=== PATIENT | male | born 1960 | race Caucasian/White ===

== ENCOUNTER 2022-05-30 21:36 | Inpatient (IN) | payer MEDICAID ==
[~2022-05-30] VITALS: Ht 165.1 cm; Wt 69.9 kg
[2022-05-30] MEDS ORDERED: CEFTRIAXONE 1 G PREMIX 50 ML IV ONE (23:00)
[2022-05-30] MEDS ORDERED: SODIUM CHLORIDE 0.9% 1000ML BAG (SEPSIS BOLUS) IV ONE (23:00)
[2022-05-30 23:33] LABS: BASOPHILS % 0.2 % (0.0-2.0); EOSINOPHILS % 0.1 % (0.0-5.0); HEMATOCRIT. 31.9 % (42.0-52.0); HEMOGLOBIN. 10.5 g/dL (14.0-18.0); LYMPHOCYTES % 9.4 % (20.0-50.0); MEAN CORPUSCULAR HEMOGLOBIN 29.6 pg (28.0-32.0); MEAN CORPUSCULAR VOLUME 89.8 fL (80.0-94.0); MEAN PLATELET VOLUME 8.3 fl (7.4-10.4); MONOCYTES % 5.5 % (2.0-8.0); NEUTROPHILS % 84.8 % (40.0-76.0); PLATELET 321 x1000/uL (130-400); RED BLOOD CELL COUNT 3.55 mill/uL (4.7-6.1); RED CELL DISTRIBUTION WIDTH 16.2 % (11.6-14.6)
[2022-05-30 23:44] LABS: INR 1.2; PROTHROMBIN TIME 12.9 sec (9.6-11.0)
[2022-05-30 23:46] LABS: CHLORIDE 112 mEq/L (98-107)
[2022-05-30 23:58] LABS: CREATINE KINASE 664 IU/L (39-308); ETHANOL BLOOD < 10 mg/dL
[2022-05-31] MEDS ORDERED: HALOPERIDOL LACTATE 5MG/ML VIAL IM ONE (00:45)
[2022-05-31] MEDS ORDERED: SODIUM CHLORIDE 0.9% 1,000 ML IV ONE (00:45)
[2022-05-31 05:39] VITALS: BP 90/56
[2022-05-31 05:43] VITALS: BP 90/56
[2022-05-31 08:00] VITALS: BP 114/62
[2022-05-31] MEDS ORDERED: ONDANSETRON HCL 4MG/2ML INJ IV PRN (09:15)
[2022-05-31] MEDS ORDERED: CLONIDINE 0.1MG TABLET PO PRN (09:15)
[2022-05-31] MEDS ORDERED: IPRATROPIUM/ALBUTEROL 0.5-3(2.5)MG/3ML NEB HHN PRN (09:15)
[2022-05-31] MEDS ORDERED: DIPHENHYDRAMINE 50MG/ML VIAL IV PRN (09:15)
[2022-05-31] MEDS ORDERED: DEXTROSE 50% WATER 50ML SYRINGE IV PRN (10:45)
[2022-05-31] MEDS: SODIUM CHLORIDE 0.9% 1,000 ML IV SCH (11:19)
[2022-05-31] MEDS ORDERED: LORAZEPAM 2MG/ML CPJ IM PRN (11:45)
[2022-05-31 12:00] VITALS: BP 124/81
[2022-05-31] MEDS ORDERED: NALOXONE HCL 0.4MG/ML VIAL IV PRN (12:00)
[2022-05-31] MEDS: MORPHINE SULFATE 2 MG/ML CPJ (NOT FOR IM USE) IV PRN ×2 (12:09→20:12)
[2022-05-31] MEDS: BLOOD SUGAR DIAGNOSTIC STRIP TEST SCH ×3 (12:17→20:12)
[2022-05-31] MEDS: INSULIN LISPRO 100 UNITS/ML SUBCUT SCH ×3 (12:18→20:12)
[2022-05-31 16:00] VITALS: BP 122/76
[2022-05-31 20:00] VITALS: BP 117/82
[2022-06-01] VITALS: BP 138/82
[2022-06-01] MEDS: SODIUM CHLORIDE 0.9% 1,000 ML IV SCH ×2 (01:33→21:46)
[2022-06-01] MEDS: HALOPERIDOL LACTATE 5MG/ML VIAL IM PRN (01:35)
[2022-06-01] MEDS: MORPHINE SULFATE 2 MG/ML CPJ (NOT FOR IM USE) IV PRN ×2 (02:17→10:08)
[2022-06-01 04:00] VITALS: BP 99/66
[2022-06-01 05:53] LABS: BASOPHILS % 0.2 % (0.0-2.0); EOSINOPHILS % 0.5 % (0.0-5.0); HEMATOCRIT. 26.1 % (42.0-52.0); HEMOGLOBIN. 8.7 g/dL (14.0-18.0); LYMPHOCYTES % 8.1 % (20.0-50.0); MEAN CORPUSCULAR VOLUME 90.3 fL (80.0-94.0); MEAN PLATELET VOLUME 8.6 fl (7.4-10.4); MONOCYTES % 5.5 % (2.0-8.0); NEUTROPHILS % 85.7 % (40.0-76.0); PLATELET 233 x1000/uL (130-400); RED BLOOD CELL COUNT 2.89 mill/uL (4.7-6.1); RED CELL DISTRIBUTION WIDTH 15.9 % (11.6-14.6)
[2022-06-01] MEDS: BLOOD SUGAR DIAGNOSTIC STRIP TEST SCH ×4 (06:41→21:40)
[2022-06-01] MEDS: INSULIN LISPRO 100 UNITS/ML SUBCUT SCH ×4 (08:01→21:00)
[2022-06-01 09:10] LABS: CHLORIDE 112 mEq/L (98-107)
[2022-06-01 12:00] VITALS: BP 100/57
[2022-06-01] MEDS: FLUOXETINE HCL 10 MG CAPSULE PO SCH (12:15)
[2022-06-01 12:52] LABS: CREATINE KINASE 209 IU/L (39-308)
[2022-06-01 16:00] VITALS: BP 110/58
[2022-06-01 20:00] VITALS: BP 110/59
[2022-06-01] MEDS: RISPERIDONE 1MG TABLET PO SCH (21:40)
[2022-06-01] MEDS ORDERED: CEFTRIAXONE 2 G PREMIX 50 ML IV SCH (23:30)
[2022-06-01] MEDS ORDERED: CEFTRIAXONE 2 G in DEXTROSE 5% WATER 50 ML IV SCH (23:45)
[2022-06-02] VITALS: BP 103/55
[2022-06-02 04:00] VITALS: BP 124/69
[2022-06-02] MEDS: MORPHINE SULFATE 2 MG/ML CPJ (NOT FOR IM USE) IV PRN (04:42)
[2022-06-02] MEDS: BLOOD SUGAR DIAGNOSTIC STRIP TEST SCH ×4 (06:03→21:00)
[2022-06-02 06:23] LABS: BASOPHILS % 0.2 % (0.0-2.0); HEMATOCRIT. 28.8 % (42.0-52.0); HEMOGLOBIN. 9.4 g/dL (14.0-18.0); LYMPHOCYTES % 7.6 % (20.0-50.0); MEAN CORPUSCULAR HEMOGLOBIN 29.9 pg (28.0-32.0); MEAN CORPUSCULAR VOLUME 91.6 fL (80.0-94.0); MEAN PLATELET VOLUME 8.3 fl (7.4-10.4); MONOCYTES % 6.2 % (2.0-8.0); PLATELET 217 x1000/uL (130-400); RED BLOOD CELL COUNT 3.14 mill/uL (4.7-6.1); RED CELL DISTRIBUTION WIDTH 16.3 % (11.6-14.6)
[2022-06-02 07:21] LABS: CHLORIDE 111 mEq/L (98-107)
[2022-06-02] MEDS: INSULIN LISPRO 100 UNITS/ML SUBCUT SCH ×4 (07:51→21:00)
[2022-06-02 08:00] VITALS: BP 150/81
[2022-06-02] MEDS: FLUOXETINE HCL 10 MG CAPSULE PO SCH (08:53)
[2022-06-02] MEDS: RISPERIDONE 1MG TABLET PO SCH ×2 (08:53→21:15)
[2022-06-02] MEDS: SODIUM CHLORIDE 0.9% 1,000 ML IV SCH (11:50)
[2022-06-02 12:00] VITALS: BP 126/81
[2022-06-02 16:00] VITALS: BP 113/70
[2022-06-02 20:00] VITALS: BP 141/85
[2022-06-02] MEDS: AMPICILLIN SOD/SULBACTAM NA 3 G in SODIUM CHLORIDE 0.9% 100 ML IV SCH (23:48)
[2022-06-03] VITALS: BP 121/71
[2022-06-03 04:00] VITALS: BP 113/74
[2022-06-03] MEDS: SODIUM CHLORIDE 0.9% 1,000 ML IV SCH ×2 (04:10→20:50)
[2022-06-03] MEDS: AMPICILLIN SOD/SULBACTAM NA 3 G in SODIUM CHLORIDE 0.9% 100 ML IV SCH ×4 (05:16→22:07)
[2022-06-03] MEDS: BLOOD SUGAR DIAGNOSTIC STRIP TEST SCH ×4 (06:00→20:51)
[2022-06-03] MEDS: INSULIN LISPRO 100 UNITS/ML SUBCUT SCH ×4 (07:25→21:47)
[2022-06-03 08:00] VITALS: BP_SYST 121; BP_SYST 152; BP_DIAS 65; BP_DIAS 80
[2022-06-03] MEDS: RISPERIDONE 1MG TABLET PO SCH ×2 (08:37→21:47)
[2022-06-03] MEDS: FLUOXETINE HCL 10 MG CAPSULE PO SCH (08:37)
[2022-06-03 12:00] VITALS: BP 138/79
[2022-06-03] MEDS: HALOPERIDOL LACTATE 5MG/ML VIAL IM PRN (13:24)
[2022-06-03 16:00] VITALS: BP 125/75
[2022-06-03 20:26] VITALS: BP 109/69
[2022-06-03] MEDS: SULFAMETHOXAZOLE/TRIMETHOPRIM 800/160MG TABLET PO SCH (21:47)
[2022-06-03] MEDS: MORPHINE SULFATE 2 MG/ML CPJ (NOT FOR IM USE) IV PRN (22:57)
[2022-06-04] VITALS (7 sets, daily range): BP systolic 87–119; BP diastolic 23–80
[2022-06-04] MEDS: AMPICILLIN SOD/SULBACTAM NA 3 G in SODIUM CHLORIDE 0.9% 100 ML IV SCH ×4 (04:53→22:29)
[2022-06-04] MEDS: BLOOD SUGAR DIAGNOSTIC STRIP TEST SCH ×4 (06:48→21:06)
[2022-06-04] MEDS: INSULIN LISPRO 100 UNITS/ML SUBCUT SCH ×4 (07:51→21:00)
[2022-06-04] MEDS: RISPERIDONE 1MG TABLET PO SCH ×2 (10:18→21:16)
[2022-06-04] MEDS: FLUOXETINE HCL 10 MG CAPSULE PO SCH (10:18)
[2022-06-04] MEDS: SULFAMETHOXAZOLE/TRIMETHOPRIM 800/160MG TABLET PO SCH ×2 (10:19→21:16)
[2022-06-04] MEDS: SODIUM CHLORIDE 0.9% 1,000 ML IV SCH (15:06)
[2022-06-05] VITALS: BP 98/45
[2022-06-05] MEDS: MORPHINE SULFATE 2 MG/ML CPJ (NOT FOR IM USE) IV PRN (01:10)
[2022-06-05] MEDS: AMPICILLIN SOD/SULBACTAM NA 3 G in SODIUM CHLORIDE 0.9% 100 ML IV SCH ×4 (04:13→22:46)
[2022-06-05 04:14] VITALS: BP 107/65
[2022-06-05] MEDS: SODIUM CHLORIDE 0.9% 1,000 ML IV SCH ×2 (05:13→22:47)
[2022-06-05] MEDS: BLOOD SUGAR DIAGNOSTIC STRIP TEST SCH ×4 (06:44→21:59)
[2022-06-05] MEDS: INSULIN LISPRO 100 UNITS/ML SUBCUT SCH ×4 (08:07→22:48)
[2022-06-05] MEDS: FLUOXETINE HCL 10 MG CAPSULE PO SCH (09:36)
[2022-06-05] MEDS: RISPERIDONE 1MG TABLET PO SCH ×2 (09:36→22:45)
[2022-06-05] MEDS: SULFAMETHOXAZOLE/TRIMETHOPRIM 800/160MG TABLET PO SCH ×2 (09:38→22:45)
[2022-06-05 12:00] VITALS: BP 120/68
[2022-06-05 16:00] VITALS: BP 123/59
[2022-06-06] VITALS: BP 119/75
[2022-06-06 04:00] VITALS: BP 122/83
[2022-06-06] MEDS: AMPICILLIN SOD/SULBACTAM NA 3 G in SODIUM CHLORIDE 0.9% 100 ML IV SCH ×4 (05:20→22:32)
[2022-06-06 08:00] VITALS: BP 103/67
[2022-06-06] MEDS: INSULIN LISPRO 100 UNITS/ML SUBCUT SCH ×4 (08:10→21:00)
[2022-06-06] MEDS: BLOOD SUGAR DIAGNOSTIC STRIP TEST SCH ×4 (08:26→21:11)
[2022-06-06] MEDS: SULFAMETHOXAZOLE/TRIMETHOPRIM 800/160MG TABLET PO SCH ×2 (09:58→21:29)
[2022-06-06] MEDS: RISPERIDONE 1MG TABLET PO SCH ×2 (09:58→21:29)
[2022-06-06] MEDS: FLUOXETINE HCL 10 MG CAPSULE PO SCH (09:58)
[2022-06-06 12:00] VITALS: BP 120/86
[2022-06-06] MEDS: SODIUM CHLORIDE 0.9% 1,000 ML IV SCH (15:30)
[2022-06-06 16:00] VITALS: BP 120/74
[2022-06-06 20:00] VITALS: BP 126/76
[2022-06-07] VITALS: BP 140/82
[2022-06-07 04:00] VITALS: BP 107/79
[2022-06-07] MEDS: BLOOD SUGAR DIAGNOSTIC STRIP TEST SCH ×4 (06:17→21:34)
[2022-06-07] MEDS: AMPICILLIN SOD/SULBACTAM NA 3 G in SODIUM CHLORIDE 0.9% 100 ML IV SCH ×4 (06:17→21:56)
[2022-06-07 08:00] VITALS: BP 136/78
[2022-06-07] MEDS: INSULIN LISPRO 100 UNITS/ML SUBCUT SCH ×4 (08:10→21:00)
[2022-06-07] MEDS: FLUOXETINE HCL 10 MG CAPSULE PO SCH (10:09)
[2022-06-07] MEDS: ACETAMINOPHEN 325MG TABLET PO PRN ×2 (10:09→21:55)
[2022-06-07] MEDS: SULFAMETHOXAZOLE/TRIMETHOPRIM 800/160MG TABLET PO SCH ×2 (10:10→21:55)
[2022-06-07] MEDS: RISPERIDONE 1MG TABLET PO SCH ×2 (10:10→21:56)
[2022-06-07] MEDS: SODIUM CHLORIDE 0.9% 1,000 ML IV SCH (10:12)
[2022-06-07 12:00] VITALS: BP 100/63
[2022-06-07 16:00] VITALS: BP 118/70
[2022-06-07 18:03] LABS: BASOPHILS % 0.6 % (0.0-2.0); EOSINOPHILS % 1.7 % (0.0-5.0); LYMPHOCYTES % 11.7 % (20.0-50.0); MEAN CORPUSCULAR HEMOGLOBIN 29.8 pg (28.0-32.0); MEAN CORPUSCULAR VOLUME 88.6 fL (80.0-94.0); MEAN PLATELET VOLUME 8.2 fl (7.4-10.4); MONOCYTES % 6.6 % (2.0-8.0); NEUTROPHILS % 79.4 % (40.0-76.0); PLATELET 249 x1000/uL (130-400); RED BLOOD CELL COUNT 2.34 mill/uL (4.7-6.1); RED CELL DISTRIBUTION WIDTH 16.5 % (11.6-14.6)
[2022-06-07 18:11] LABS: HEMATOCRIT. 20.8 % (42.0-52.0)
[2022-06-07 18:33] LABS: CHLORIDE 113 mEq/L (98-107)
[2022-06-07 20:00] VITALS: BP 135/92
[2022-06-08] VITALS: BP 129/78
[2022-06-08 04:00] VITALS: BP 122/71
[2022-06-08] MEDS: BLOOD SUGAR DIAGNOSTIC STRIP TEST SCH ×4 (05:49→20:25)
[2022-06-08] MEDS: AMPICILLIN SOD/SULBACTAM NA 3 G in SODIUM CHLORIDE 0.9% 100 ML IV SCH ×4 (06:31→22:16)
[2022-06-08] MEDS: ACETAMINOPHEN 325MG TABLET PO PRN ×2 (06:32→08:53)
[2022-06-08 07:11] LABS: BASOPHILS % 0.4 % (0.0-2.0); EOSINOPHILS % 1.2 % (0.0-5.0); HEMATOCRIT. 24.3 % (42.0-52.0); HEMOGLOBIN. 8.2 g/dL (14.0-18.0); MEAN CORPUSCULAR HEMOGLOBIN 29.9 pg (28.0-32.0); MEAN CORPUSCULAR VOLUME 88.5 fL (80.0-94.0); MONOCYTES % 5.2 % (2.0-8.0); NEUTROPHILS % 79.2 % (40.0-76.0); PLATELET 294 x1000/uL (130-400); RED BLOOD CELL COUNT 2.75 mill/uL (4.7-6.1); RED CELL DISTRIBUTION WIDTH 16.5 % (11.6-14.6)
[2022-06-08 08:00] VITALS: BP 127/88
[2022-06-08 08:03] LABS: CHLORIDE 109 mEq/L (98-107)
[2022-06-08] MEDS: INSULIN LISPRO 100 UNITS/ML SUBCUT SCH ×4 (08:10→20:53)
[2022-06-08] MEDS: RISPERIDONE 1MG TABLET PO SCH ×2 (08:53→20:47)
[2022-06-08] MEDS: FLUOXETINE HCL 10 MG CAPSULE PO SCH (08:53)
[2022-06-08] MEDS: SULFAMETHOXAZOLE/TRIMETHOPRIM 800/160MG TABLET PO SCH ×2 (08:53→20:47)
[2022-06-08 12:00] VITALS: BP 124/82
[2022-06-08 16:00] VITALS: BP 130/78
[2022-06-08 20:00] VITALS: BP 125/78
[2022-06-09] VITALS: BP 132/83
[2022-06-09] MEDS: HALOPERIDOL LACTATE 5MG/ML VIAL IM PRN ×2 (02:52→22:26)
[2022-06-09] MEDS: AMPICILLIN SOD/SULBACTAM NA 3 G in SODIUM CHLORIDE 0.9% 100 ML IV SCH ×4 (03:55→22:12)
[2022-06-09 04:00] VITALS: BP 106/68
[2022-06-09] MEDS: BLOOD SUGAR DIAGNOSTIC STRIP TEST SCH ×4 (06:49→21:23)
[2022-06-09 08:00] VITALS: BP 129/76
[2022-06-09] MEDS: INSULIN LISPRO 100 UNITS/ML SUBCUT SCH ×4 (08:54→21:00)
[2022-06-09] MEDS: RISPERIDONE 1MG TABLET PO SCH ×2 (08:59→21:15)
[2022-06-09] MEDS: FLUOXETINE HCL 20MG CAPSULE PO SCH (09:00)
[2022-06-09] MEDS: SULFAMETHOXAZOLE/TRIMETHOPRIM 800/160MG TABLET PO SCH ×2 (09:00→21:15)
[2022-06-09 12:00] VITALS: BP 126/79
[2022-06-09 16:00] VITALS: BP 120/85
[2022-06-09 20:48] VITALS: BP 101/52
[2022-06-10 00:30] VITALS: BP 112/56
[2022-06-10 04:00] VITALS: BP 123/66
[2022-06-10] MEDS: AMPICILLIN SOD/SULBACTAM NA 3 G in SODIUM CHLORIDE 0.9% 100 ML IV SCH ×4 (05:31→23:21)
[2022-06-10] MEDS: BLOOD SUGAR DIAGNOSTIC STRIP TEST SCH ×4 (06:45→20:35)
[2022-06-10] MEDS: INSULIN LISPRO 100 UNITS/ML SUBCUT SCH ×4 (07:43→21:00)
[2022-06-10] MEDS: SULFAMETHOXAZOLE/TRIMETHOPRIM 800/160MG TABLET PO SCH ×2 (10:36→21:03)
[2022-06-10] MEDS: FLUOXETINE HCL 20MG CAPSULE PO SCH (10:36)
[2022-06-10] MEDS: RISPERIDONE 1MG TABLET PO SCH ×2 (10:38→21:02)
[2022-06-10 12:00] VITALS: BP 119/71
[2022-06-10 16:00] VITALS: BP 119/71
[2022-06-10 20:49] VITALS: BP 101/50
[2022-06-10] MEDS: ACETAMINOPHEN 325MG TABLET PO PRN (21:03)
[2022-06-11 00:39] VITALS: BP 138/68
[2022-06-11] MEDS: BLOOD SUGAR DIAGNOSTIC STRIP TEST SCH ×4 (05:27→21:09)
[2022-06-11 08:00] VITALS: BP 144/82
[2022-06-11] MEDS: INSULIN LISPRO 100 UNITS/ML SUBCUT SCH ×4 (08:10→21:00)
[2022-06-11] MEDS: RISPERIDONE 1MG TABLET PO SCH ×2 (08:41→21:10)
[2022-06-11] MEDS: FLUOXETINE HCL 20MG CAPSULE PO SCH (08:41)
[2022-06-11 12:00] VITALS: BP 111/72
[2022-06-11 16:00] VITALS: BP 118/71
[2022-06-11 20:00] VITALS: BP 109/62
[2022-06-11] MEDS: ACETAMINOPHEN 325MG TABLET PO PRN (21:10)
[2022-06-12] VITALS: BP_SYST 129; BP_SYST 141; BP_DIAS 80; BP_DIAS 81
[2022-06-12 04:00] VITALS: BP 129/80
[2022-06-12] MEDS: INSULIN LISPRO 100 UNITS/ML SUBCUT SCH ×3 (07:38→21:00)
[2022-06-12 08:00] VITALS: BP 125/72
[2022-06-12] MEDS: FLUOXETINE HCL 20MG CAPSULE PO SCH (08:48)
[2022-06-12] MEDS: RISPERIDONE 1MG TABLET PO SCH ×2 (08:49→21:27)
[2022-06-12 12:00] VITALS: BP 119/80
[2022-06-12] MEDS: BLOOD SUGAR DIAGNOSTIC STRIP TEST SCH ×2 (12:20→21:00)
[2022-06-12 16:00] VITALS: BP 111/65
[2022-06-12 20:00] VITALS: BP 103/79
[2022-06-13] VITALS: BP 131/75
[2022-06-13 04:00] VITALS: BP 126/78
[2022-06-13] MEDS: BLOOD SUGAR DIAGNOSTIC STRIP TEST SCH ×3 (06:35→21:14)
[2022-06-13] MEDS: INSULIN LISPRO 100 UNITS/ML SUBCUT SCH ×3 (07:50→21:00)
[2022-06-13 08:00] VITALS: BP 125/65
[2022-06-13 08:10] LABS: BASOPHILS % 0.5 % (0.0-2.0); EOSINOPHILS % 0.5 % (0.0-5.0); HEMATOCRIT. 23.2 % (42.0-52.0); HEMOGLOBIN. 7.9 g/dL (14.0-18.0); LYMPHOCYTES % 15.4 % (20.0-50.0); MEAN CORPUSCULAR HEMOGLOBIN 30.3 pg (28.0-32.0); MEAN CORPUSCULAR VOLUME 89.5 fL (80.0-94.0); MEAN PLATELET VOLUME 7.7 fl (7.4-10.4); MONOCYTES % 8.5 % (2.0-8.0); NEUTROPHILS % 75.1 % (40.0-76.0); PLATELET 418 x1000/uL (130-400); RED CELL DISTRIBUTION WIDTH 16.7 % (11.6-14.6)
[2022-06-13 08:21] LABS: CHLORIDE 105 mEq/L (98-107)
[2022-06-13] MEDS: RISPERIDONE 1MG TABLET PO SCH ×2 (09:45→20:42)
[2022-06-13] MEDS: FLUOXETINE HCL 20MG CAPSULE PO SCH (09:45)
[2022-06-13 12:00] VITALS: BP 83/35
[2022-06-13 16:00] VITALS: BP 118/65
[2022-06-13 20:00] VITALS: BP 103/65
[2022-06-14] VITALS: BP 99/62
[2022-06-14 04:00] VITALS: BP 122/74
[2022-06-14] MEDS: BLOOD SUGAR DIAGNOSTIC STRIP TEST SCH ×3 (06:23→20:07)
[2022-06-14] MEDS: INSULIN LISPRO 100 UNITS/ML SUBCUT SCH ×3 (07:50→20:16)
[2022-06-14 08:00] VITALS: BP 117/55
[2022-06-14] MEDS: RISPERIDONE 1MG TABLET PO SCH ×2 (10:38→20:08)
[2022-06-14] MEDS: FLUOXETINE HCL 20MG CAPSULE PO SCH (10:38)
[2022-06-14 12:00] VITALS: BP 102/63
[2022-06-14 16:00] VITALS: BP 95/63
[2022-06-14 20:00] VITALS: BP 105/46
[2022-06-15] VITALS: BP 104/60
[2022-06-15 04:00] VITALS: BP 107/62
[2022-06-15] MEDS: INSULIN LISPRO 100 UNITS/ML SUBCUT SCH ×4 (07:50→21:00)
[2022-06-15] MEDS: BLOOD SUGAR DIAGNOSTIC STRIP TEST SCH ×4 (07:54→21:37)
[2022-06-15 08:00] VITALS: BP 117/51
[2022-06-15] MEDS: FLUOXETINE HCL 20MG CAPSULE PO SCH (09:01)
[2022-06-15] MEDS: RISPERIDONE 1MG TABLET PO SCH ×2 (09:02→21:41)
[2022-06-15 12:00] VITALS: BP 110/58
[2022-06-15 16:00] VITALS: BP 102/69
[2022-06-15 20:00] VITALS: BP 120/71
[2022-06-16] VITALS: BP 122/73
[2022-06-16 04:00] VITALS: BP 128/80
[2022-06-16] MEDS: BLOOD SUGAR DIAGNOSTIC STRIP TEST SCH ×4 (06:45→20:43)
[2022-06-16 07:38] LABS: BASOPHILS % 0.8 % (0.0-2.0); EOSINOPHILS % 0.7 % (0.0-5.0); HEMOGLOBIN. 8.8 g/dL (14.0-18.0); MEAN CORPUSCULAR HEMOGLOBIN 30.1 pg (28.0-32.0); MEAN CORPUSCULAR VOLUME 88.7 fL (80.0-94.0); MEAN PLATELET VOLUME 7.1 fl (7.4-10.4); MONOCYTES % 9.5 % (2.0-8.0); PLATELET 508 x1000/uL (130-400); RED BLOOD CELL COUNT 2.93 mill/uL (4.7-6.1); RED CELL DISTRIBUTION WIDTH 16.6 % (11.6-14.6)
[2022-06-16] MEDS: INSULIN LISPRO 100 UNITS/ML SUBCUT SCH ×4 (07:50→20:43)
[2022-06-16 08:00] VITALS: BP 109/70
[2022-06-16] MEDS: FLUOXETINE HCL 20MG CAPSULE PO SCH (10:01)
[2022-06-16] MEDS: RISPERIDONE 1MG TABLET PO SCH ×2 (10:01→20:33)
[2022-06-16 11:56] VITALS: BP 117/64
[2022-06-16 16:00] VITALS: BP 104/67
[2022-06-16] MEDS: HYDROCODONE/ACETAMINOPHEN 5/325MG TABLET PO PRN (17:41)
[2022-06-16] MEDS: ENOXAPARIN 40MG/0.4ML SYR SUBCUT SCH (17:41)
[2022-06-16 20:00] VITALS: BP 126/79
[2022-06-17] MEDS: BLOOD SUGAR DIAGNOSTIC STRIP TEST SCH ×2 (07:20→21:00)
[2022-06-17 07:27] LABS: HEMATOCRIT 23.7 % (42.0-52.0); MEAN CORPUSCULAR HEMOGLOBIN 30.3 pg (28.0-32.0); MEAN CORPUSCULAR VOLUME 89.8 fL (80.0-94.0); PLATELET 470 x1000/uL (130-400); RED BLOOD CELL COUNT 2.64 mill/uL (4.7-6.1); RED CELL DISTRIBUTION WIDTH 16.7 % (11.6-14.6)
[2022-06-17] MEDS: INSULIN LISPRO 100 UNITS/ML SUBCUT SCH ×2 (07:50→21:00)
[2022-06-17 08:00] VITALS: BP 108/99
[2022-06-17] MEDS: RISPERIDONE 1MG TABLET PO SCH ×2 (08:22→20:26)
[2022-06-17] MEDS: FLUOXETINE HCL 20MG CAPSULE PO SCH (08:22)
[2022-06-17] MEDS: HYDROCODONE/ACETAMINOPHEN 5/325MG TABLET PO PRN (08:24)
[2022-06-17 12:00] VITALS: BP 123/76
[2022-06-17 16:00] VITALS: BP 106/61
[2022-06-17] MEDS ORDERED: NALOXONE HCL 0.4MG/ML VIAL IV PRN (16:30)
[2022-06-17 20:00] VITALS: BP 120/79
[2022-06-18] VITALS: BP 122/78
[2022-06-18 04:00] VITALS: BP 120/76
[2022-06-18] MEDS: BLOOD SUGAR DIAGNOSTIC STRIP TEST SCH ×4 (07:36→21:09)
[2022-06-18] MEDS: INSULIN LISPRO 100 UNITS/ML SUBCUT SCH ×4 (07:36→21:00)
[2022-06-18 08:00] VITALS: BP 131/80
[2022-06-18] MEDS: RISPERIDONE 1MG TABLET PO SCH ×2 (08:29→21:08)
[2022-06-18] MEDS: FLUOXETINE HCL 20MG CAPSULE PO SCH (08:29)
[2022-06-18 12:00] VITALS: BP 114/70
[2022-06-18] MEDS: HYDROCODONE/ACETAMINOPHEN 5/325MG TABLET PO PRN (15:14)
[2022-06-18 16:00] VITALS: BP 111/72
[2022-06-18] MEDS: ENOXAPARIN 40MG/0.4ML SYR SUBCUT SCH ×2 (18:00→19:07)
[2022-06-18 20:00] VITALS: BP 130/90
[2022-06-19] VITALS: BP 130/90
[2022-06-19] MEDS: BLOOD SUGAR DIAGNOSTIC STRIP TEST SCH ×4 (03:46→21:06)
[2022-06-19 04:00] VITALS: BP_SYST 130; BP_SYST 137; BP_DIAS 84; BP_DIAS 90
[2022-06-19] MEDS: INSULIN LISPRO 100 UNITS/ML SUBCUT SCH ×4 (07:50→21:00)
[2022-06-19 08:00] VITALS: BP 119/75
[2022-06-19] MEDS: RISPERIDONE 1MG TABLET PO SCH ×2 (10:37→21:07)
[2022-06-19] MEDS: FLUOXETINE HCL 20MG CAPSULE PO SCH (10:37)
[2022-06-19 12:00] VITALS: BP 100/56
[2022-06-19 16:00] VITALS: BP 92/54
[2022-06-19] MEDS: ENOXAPARIN 40MG/0.4ML SYR SUBCUT SCH (18:00)
[2022-06-19 20:00] VITALS: BP 120/66
[2022-06-19] MEDS: HYDROCODONE/ACETAMINOPHEN 5/325MG TABLET PO PRN (20:00)
[2022-06-20] MEDS: HYDROCODONE/ACETAMINOPHEN 5/325MG TABLET PO PRN ×2 (02:00→14:28)
[2022-06-20] MEDS: BLOOD SUGAR DIAGNOSTIC STRIP TEST SCH ×4 (03:54→21:00)
[2022-06-20] MEDS: INSULIN LISPRO 100 UNITS/ML SUBCUT SCH ×4 (07:50→21:00)
[2022-06-20 08:00] VITALS: BP 103/52
[2022-06-20] MEDS: RISPERIDONE 1MG TABLET PO SCH ×2 (08:56→21:00)
[2022-06-20] MEDS: ACETAMINOPHEN 325MG TABLET PO PRN (08:56)
[2022-06-20] MEDS: FLUOXETINE HCL 20MG CAPSULE PO SCH (08:57)
[2022-06-20 12:00] VITALS: BP 96/57
[2022-06-20 16:00] VITALS: BP 118/66
[2022-06-20] MEDS: ENOXAPARIN 40MG/0.4ML SYR SUBCUT SCH (19:05)
[2022-06-20 20:00] VITALS: BP 129/74
[2022-06-21] VITALS: BP 131/83
[2022-06-21 04:00] VITALS: BP 133/87
[2022-06-21] MEDS: BLOOD SUGAR DIAGNOSTIC STRIP TEST SCH ×4 (07:20→20:41)
[2022-06-21 07:22] LABS: BASOPHILS % 0.9 % (0.0-2.0); HEMATOCRIT. 27.5 % (42.0-52.0); LYMPHOCYTES % 17.9 % (20.0-50.0); MEAN CORPUSCULAR HEMOGLOBIN 29.2 pg (28.0-32.0); MEAN CORPUSCULAR VOLUME 89.6 fL (80.0-94.0); MEAN PLATELET VOLUME 7.7 fl (7.4-10.4); MONOCYTES % 10.6 % (2.0-8.0); NEUTROPHILS % 69.6 % (40.0-76.0); PLATELET 367 x1000/uL (130-400); RED BLOOD CELL COUNT 3.07 mill/uL (4.7-6.1); RED CELL DISTRIBUTION WIDTH 17.2 % (11.6-14.6)
[2022-06-21] MEDS: INSULIN LISPRO 100 UNITS/ML SUBCUT SCH ×4 (07:50→20:42)
[2022-06-21 07:53] LABS: CHLORIDE 103 mEq/L (98-107)
[2022-06-21 08:00] VITALS: BP 122/53
[2022-06-21] MEDS: RISPERIDONE 1MG TABLET PO SCH ×2 (09:28→20:42)
[2022-06-21] MEDS: FLUOXETINE HCL 20MG CAPSULE PO SCH (09:28)
[2022-06-21] MEDS: HYDROCODONE/ACETAMINOPHEN 5/325MG TABLET PO PRN (09:29)
[2022-06-21 12:00] VITALS: BP 98/59
[2022-06-21] MEDS ORDERED: POLYETHYLENE GLYCOL 3350 (17GM) 1 DOSE PACK PO PRN (12:15)
[2022-06-21 16:00] VITALS: BP 114/62
[2022-06-21 20:00] VITALS: BP 120/72
[2022-06-21] MEDS: ENOXAPARIN 40MG/0.4ML SYR SUBCUT SCH (20:02)
[2022-06-22] VITALS: BP 134/72
[2022-06-22 04:00] VITALS: BP 127/78
[2022-06-22] MEDS: BLOOD SUGAR DIAGNOSTIC STRIP TEST SCH ×4 (06:31→20:33)
[2022-06-22] MEDS: INSULIN LISPRO 100 UNITS/ML SUBCUT SCH ×4 (06:32→20:33)
[2022-06-22 07:45] VITALS: BP 149/93
[2022-06-22] MEDS: RISPERIDONE 1MG TABLET PO SCH ×2 (09:11→20:29)
[2022-06-22] MEDS: FLUOXETINE HCL 20MG CAPSULE PO SCH (09:11)
[2022-06-22 11:36] VITALS: BP 122/76
[2022-06-22 15:49] VITALS: BP 134/82
[2022-06-22] MEDS: ACETAMINOPHEN 325MG TABLET PO PRN (17:40)
[2022-06-22] MEDS: ENOXAPARIN 40MG/0.4ML SYR SUBCUT SCH (17:40)
[2022-06-22 20:00] VITALS: BP 106/65
[2022-06-23] VITALS: BP 132/78
[2022-06-23 04:00] VITALS: BP 111/61
[2022-06-23] MEDS: BLOOD SUGAR DIAGNOSTIC STRIP TEST SCH ×5 (07:20→21:19)
[2022-06-23] MEDS: INSULIN LISPRO 100 UNITS/ML SUBCUT SCH ×4 (07:50→21:00)
[2022-06-23 08:00] VITALS: BP 135/80
[2022-06-23] MEDS: FLUOXETINE HCL 20MG CAPSULE PO SCH (09:44)
[2022-06-23] MEDS: RISPERIDONE 1MG TABLET PO SCH ×2 (09:46→21:18)
[2022-06-23 11:42] LABS: BASOPHILS % 0.7 % (0.0-2.0); EOSINOPHILS % 0.4 % (0.0-5.0); HEMATOCRIT. 25.4 % (42.0-52.0); HEMOGLOBIN. 8.5 g/dL (14.0-18.0); MEAN CORPUSCULAR HEMOGLOBIN 29.6 pg (28.0-32.0); MEAN CORPUSCULAR VOLUME 88.3 fL (80.0-94.0); MEAN PLATELET VOLUME 7.2 fl (7.4-10.4); MONOCYTES % 9.7 % (2.0-8.0); NEUTROPHILS % 77.2 % (40.0-76.0); PLATELET 366 x1000/uL (130-400); RED BLOOD CELL COUNT 2.87 mill/uL (4.7-6.1); RED CELL DISTRIBUTION WIDTH 16.6 % (11.6-14.6)
[2022-06-23 12:00] VITALS: BP 121/77
[2022-06-23 16:00] VITALS: BP 112/49
[2022-06-23] MEDS: ENOXAPARIN 40MG/0.4ML SYR SUBCUT SCH ×2 (18:00→18:06)
[2022-06-23 20:00] VITALS: BP 110/37
[2022-06-24] VITALS: BP 128/86
[2022-06-24 04:00] VITALS: BP 138/90
[2022-06-24] MEDS: BLOOD SUGAR DIAGNOSTIC STRIP TEST SCH ×4 (07:20→21:42)
[2022-06-24] MEDS: INSULIN LISPRO 100 UNITS/ML SUBCUT SCH ×4 (07:50→21:31)
[2022-06-24 08:00] VITALS: BP 118/62
[2022-06-24] MEDS: RISPERIDONE 1MG TABLET PO SCH ×2 (09:54→21:29)
[2022-06-24] MEDS: FLUOXETINE HCL 20MG CAPSULE PO SCH (09:54)
[2022-06-24 12:00] VITALS: BP 122/62
[2022-06-24 16:00] VITALS: BP 109/76
[2022-06-24] MEDS: ENOXAPARIN 40MG/0.4ML SYR SUBCUT SCH (18:39)
[2022-06-24 23:48] VITALS: BP 111/75
[2022-06-25] MEDS: INSULIN LISPRO 100 UNITS/ML SUBCUT SCH ×4 (07:09→21:00)
[2022-06-25] MEDS: BLOOD SUGAR DIAGNOSTIC STRIP TEST SCH ×4 (07:20→20:53)
[2022-06-25 08:00] VITALS: BP 128/85
[2022-06-25] MEDS: RISPERIDONE 1MG TABLET PO SCH ×2 (10:56→20:53)
[2022-06-25] MEDS: FLUOXETINE HCL 20MG CAPSULE PO SCH (10:56)
[2022-06-25 12:00] VITALS: BP 131/81
[2022-06-25 16:00] VITALS: BP 132/72
[2022-06-25] MEDS: ENOXAPARIN 40MG/0.4ML SYR SUBCUT SCH (17:55)
[2022-06-25 20:00] VITALS: BP 119/80
[2022-06-26] VITALS: BP 121/80
[2022-06-26] MEDS: BLOOD SUGAR DIAGNOSTIC STRIP TEST SCH ×4 (06:44→21:13)
[2022-06-26] MEDS: INSULIN LISPRO 100 UNITS/ML SUBCUT SCH ×4 (07:37→21:00)
[2022-06-26 08:00] VITALS: BP 115/63
[2022-06-26] MEDS: RISPERIDONE 1MG TABLET PO SCH ×2 (08:32→21:13)
[2022-06-26] MEDS: FLUOXETINE HCL 20MG CAPSULE PO SCH (08:32)
[2022-06-26 09:10] LABS: BASOPHILS % 0.8 % (0.0-2.0); HEMATOCRIT. 26.2 % (42.0-52.0); HEMOGLOBIN. 8.7 g/dL (14.0-18.0); LYMPHOCYTES % 14.7 % (20.0-50.0); MEAN CORPUSCULAR HEMOGLOBIN 29.7 pg (28.0-32.0); MEAN CORPUSCULAR VOLUME 89.2 fL (80.0-94.0); MEAN PLATELET VOLUME 7.9 fl (7.4-10.4); MONOCYTES % 9.7 % (2.0-8.0); NEUTROPHILS % 73.8 % (40.0-76.0); PLATELET 406 x1000/uL (130-400); RED BLOOD CELL COUNT 2.94 mill/uL (4.7-6.1); RED CELL DISTRIBUTION WIDTH 16.6 % (11.6-14.6)
[2022-06-26] MEDS: ENOXAPARIN 40MG/0.4ML SYR SUBCUT SCH (18:00)
[2022-06-26 20:00] VITALS: BP 120/74
[2022-06-27] VITALS: BP 128/78
[2022-06-27 04:00] VITALS: BP 109/66
[2022-06-27] MEDS: BLOOD SUGAR DIAGNOSTIC STRIP TEST SCH ×4 (07:11→20:38)
[2022-06-27] MEDS: INSULIN LISPRO 100 UNITS/ML SUBCUT SCH ×4 (07:11→20:38)
[2022-06-27 08:00] VITALS: BP 112/71
[2022-06-27] MEDS: RISPERIDONE 1MG TABLET PO SCH ×2 (09:24→20:38)
[2022-06-27] MEDS: FLUOXETINE HCL 20MG CAPSULE PO SCH (09:24)
[2022-06-27 12:00] VITALS: BP 107/62
[2022-06-27 16:00] VITALS: BP 108/66
[2022-06-27] MEDS: ENOXAPARIN 40MG/0.4ML SYR SUBCUT SCH (18:00)
[2022-06-27 20:00] VITALS: BP 115/73
[2022-06-28] VITALS: BP 128/71
[2022-06-28 04:00] VITALS: BP 124/78
[2022-06-28] MEDS: BLOOD SUGAR DIAGNOSTIC STRIP TEST SCH ×2 (07:20→13:04)
[2022-06-28] MEDS: INSULIN LISPRO 100 UNITS/ML SUBCUT SCH ×2 (07:50→12:50)
[2022-06-28 08:00] VITALS: BP 118/69
[2022-06-28] MEDS: RISPERIDONE 1MG TABLET PO SCH ×2 (09:24→21:16)
[2022-06-28] MEDS: FLUOXETINE HCL 20MG CAPSULE PO SCH (09:24)
[2022-06-28 12:00] VITALS: BP 114/71
[2022-06-28 16:00] VITALS: BP 123/67
[2022-06-28] MEDS: ENOXAPARIN 40MG/0.4ML SYR SUBCUT SCH (17:11)
[2022-06-28 20:00] VITALS: BP 100/63
[2022-06-29] VITALS (7 sets, daily range): BP systolic 111–140; BP diastolic 63–86
[2022-06-29] MEDS: FLUOXETINE HCL 20MG CAPSULE PO SCH (08:53)
[2022-06-29] MEDS: RISPERIDONE 1MG TABLET PO SCH ×2 (08:53→20:33)
[2022-06-29] MEDS: ENOXAPARIN 40MG/0.4ML SYR SUBCUT SCH (18:18)
[2022-06-30] VITALS: BP 120/76
[2022-06-30 04:00] VITALS: BP 127/60
[2022-06-30 06:59] LABS: HEMATOCRIT 24.8 % (42.0-52.0); HEMOGLOBIN 8.4 g/dL (14.0-18.0); MEAN CORPUSCULAR HEMOGLOBIN 29.7 pg (28.0-32.0); MEAN CORPUSCULAR VOLUME 87.7 fL (80.0-94.0); PLATELET 395 x1000/uL (130-400); RED BLOOD CELL COUNT 2.82 mill/uL (4.7-6.1); RED CELL DISTRIBUTION WIDTH 16.3 % (11.6-14.6)
[2022-06-30 07:25] LABS: CHLORIDE 108 mEq/L (98-107)
[2022-06-30 08:00] VITALS: BP 115/74
[2022-06-30] MEDS: ACETAMINOPHEN 325MG TABLET PO PRN (10:07)
[2022-06-30 12:00] VITALS: BP 106/71
[2022-06-30 15:49] LABS: CLARITY URINE CLOUDY (CLEAR); COLOR URINE YELLOW (YELLOW); KETONES URINE NEGATIVE (NEGATIVE); LEUKOCYTE ESTERASE URINE 2+ (NEGATIVE); NITRITE URINE NEGATIVE (NEGATIVE); OCCULT BLOOD URINE 1+ (NEGATIVE); PROTEIN URINE TRACE (NEGATIVE); UROBILINOGEN URINE 0.2 E.U./dL (0.2-1.0)
[2022-06-30 16:00] VITALS: BP 129/78
[2022-06-30 20:00] VITALS: BP 133/79
[2022-06-30] MEDS ORDERED: CEFTRIAXONE 1 G PREMIX 50 ML IV SCH ×2 (20:45→22:00)
[2022-07-01] VITALS: BP 141/90
[2022-07-01] MEDS: ACETAMINOPHEN 325MG TABLET PO PRN (02:05)
[2022-07-01] MEDS: CEFTRIAXONE 1,000 MG in DEXTROSE 5% WATER 50 ML IV SCH ×2 (03:31→22:20)
[2022-07-01 04:00] VITALS: BP 130/80
[2022-07-01 06:45] LABS: BASOPHILS % 0.5 % (0.0-2.0); EOSINOPHILS % 0.4 % (0.0-5.0); HEMOGLOBIN. 8.7 g/dL (14.0-18.0); LYMPHOCYTES % 14.8 % (20.0-50.0); MEAN CORPUSCULAR HEMOGLOBIN 29.7 pg (28.0-32.0); MEAN CORPUSCULAR VOLUME 89.4 fL (80.0-94.0); MEAN PLATELET VOLUME 7.7 fl (7.4-10.4); MONOCYTES % 8.6 % (2.0-8.0); NEUTROPHILS % 75.7 % (40.0-76.0); PLATELET 429 x1000/uL (130-400); RED BLOOD CELL COUNT 2.91 mill/uL (4.7-6.1); RED CELL DISTRIBUTION WIDTH 16.1 % (11.6-14.6)
[2022-07-01 06:58] LABS: CHLORIDE 105 mEq/L (98-107)
[2022-07-01 08:00] VITALS: BP 123/78
[2022-07-01 12:00] VITALS: BP 116/75
[2022-07-01 16:00] VITALS: BP 118/76
[2022-07-01] MEDS: ENOXAPARIN 40MG/0.4ML SYR SUBCUT SCH (18:42)
[2022-07-01 20:00] VITALS: BP 120/83
[2022-07-02] VITALS: BP 132/81
[2022-07-02 08:14] VITALS: BP 128/82
[2022-07-02] MEDS: ENOXAPARIN 40MG/0.4ML SYR SUBCUT SCH (17:32)
[2022-07-02] MEDS: CEFTRIAXONE 1,000 MG in DEXTROSE 5% WATER 50 ML IV SCH (22:43)
[2022-07-02 23:26] VITALS: BP 126/73
[2022-07-03 04:24] VITALS: BP 136/88
[2022-07-03 07:43] VITALS: BP 121/83
[2022-07-03] MEDS: ENOXAPARIN 40MG/0.4ML SYR SUBCUT SCH (18:49)
[2022-07-03 20:00] VITALS: BP 121/81
[2022-07-04] MEDS: CEFTRIAXONE 1,000 MG in DEXTROSE 5% WATER 50 ML IV SCH ×2 (02:10→23:26)
[2022-07-04 08:00] VITALS: BP 124/87
[2022-07-04 12:00] VITALS: BP 127/85
[2022-07-04] MEDS: RISPERIDONE 1MG TABLET PO SCH ×2 (15:00→21:00)
[2022-07-04 16:00] VITALS: BP 119/73
[2022-07-04] MEDS: ENOXAPARIN 40MG/0.4ML SYR SUBCUT SCH (17:59)
[2022-07-04] MEDS: FLUOXETINE HCL 20MG CAPSULE PO SCH (18:00)
[2022-07-04 20:00] VITALS: BP 129/69
[2022-07-05] VITALS: BP 116/72
[2022-07-05 04:00] VITALS: BP 108/72
[2022-07-05 07:06] LABS: QFT MITOGEN VALUE 3.11 IU/mL (.); QFT TB GOLD PLUS Negative (Negative); QFT TB1 AG VALUE 0.01 IU/mL (.)
[2022-07-05 08:00] VITALS: BP 135/90
[2022-07-05] MEDS: FLUOXETINE HCL 20MG CAPSULE PO SCH (09:19)
[2022-07-05] MEDS: RISPERIDONE 1MG TABLET PO SCH ×2 (09:19→21:43)
[2022-07-05 12:00] VITALS: BP 125/82
[2022-07-05 16:00] VITALS: BP 126/83
[2022-07-05] MEDS: ENOXAPARIN 40MG/0.4ML SYR SUBCUT SCH (17:45)
[2022-07-05 20:00] VITALS: BP 117/77
[2022-07-05] MEDS: CEFTRIAXONE 1,000 MG in DEXTROSE 5% WATER 50 ML IV SCH (23:06)
[2022-07-06] VITALS: BP 120/83
[2022-07-06 04:00] VITALS: BP 130/81
[2022-07-06 08:00] VITALS: BP 108/67
[2022-07-06] MEDS: FLUOXETINE HCL 20MG CAPSULE PO SCH (08:57)
[2022-07-06] MEDS: RISPERIDONE 1MG TABLET PO SCH ×2 (08:57→21:28)
[2022-07-06 12:00] VITALS: BP 133/83
[2022-07-06 16:00] VITALS: BP 131/85
[2022-07-06] MEDS: ENOXAPARIN 40MG/0.4ML SYR SUBCUT SCH (17:42)
[2022-07-06 20:00] VITALS: BP 128/86
[2022-07-07] VITALS: BP 127/87
[2022-07-07 04:00] VITALS: BP 138/89
[2022-07-07 08:00] VITALS: BP 93/49
[2022-07-07] MEDS: FLUOXETINE HCL 20MG CAPSULE PO SCH (10:14)
[2022-07-07] MEDS: RISPERIDONE 1MG TABLET PO SCH ×2 (10:15→21:45)
[2022-07-07 12:00] VITALS: BP 128/77
[2022-07-07 16:38] VITALS: BP 135/89
[2022-07-07] MEDS: ENOXAPARIN 40MG/0.4ML SYR SUBCUT SCH (17:32)
[2022-07-07 20:00] VITALS: BP 107/64
[2022-07-08] VITALS: BP 127/84
[2022-07-08 04:00] VITALS: BP 122/81
[2022-07-08 07:11] LABS: BASOPHILS % 0.6 % (0.0-2.0); EOSINOPHILS % 0.8 % (0.0-5.0); HEMATOCRIT. 26.8 % (42.0-52.0); HEMOGLOBIN. 8.9 g/dL (14.0-18.0); LYMPHOCYTES % 20.6 % (20.0-50.0); MEAN CORPUSCULAR VOLUME 87.4 fL (80.0-94.0); MEAN PLATELET VOLUME 8.8 fl (7.4-10.4); MONOCYTES % 8.3 % (2.0-8.0); NEUTROPHILS % 69.7 % (40.0-76.0); PLATELET 441 x1000/uL (130-400); RED BLOOD CELL COUNT 3.07 mill/uL (4.7-6.1); RED CELL DISTRIBUTION WIDTH 16.5 % (11.6-14.6)
[2022-07-08 07:50] LABS: CHLORIDE 107 mEq/L (98-107)
[2022-07-08 08:10] VITALS: BP 110/68
[2022-07-08] MEDS: FLUOXETINE HCL 20MG CAPSULE PO SCH (10:06)
[2022-07-08] MEDS: RISPERIDONE 1MG TABLET PO SCH ×2 (10:06→21:11)
[2022-07-08 12:00] VITALS: BP 106/62
[2022-07-08 16:30] VITALS: BP 98/58
[2022-07-08] MEDS: ENOXAPARIN 40MG/0.4ML SYR SUBCUT SCH (16:59)
[2022-07-08 20:00] VITALS: BP 117/76
[2022-07-09] VITALS: BP 128/83
[2022-07-09 04:00] VITALS: BP 134/82
[2022-07-09 08:00] VITALS: BP 131/83
[2022-07-09] MEDS: RISPERIDONE 1MG TABLET PO SCH ×2 (10:02→21:00)
[2022-07-09] MEDS: FLUOXETINE HCL 20MG CAPSULE PO SCH (10:05)
[2022-07-09 12:00] VITALS: BP 131/85
[2022-07-09 16:00] VITALS: BP 122/86
[2022-07-09] MEDS: ENOXAPARIN 40MG/0.4ML SYR SUBCUT SCH (17:34)
[2022-07-09 20:00] VITALS: BP 116/75
[2022-07-10] VITALS: BP 119/70
[2022-07-10 04:00] VITALS: BP 100/71
[2022-07-10 08:00] VITALS: BP 129/87
[2022-07-10] MEDS: RISPERIDONE 1MG TABLET PO SCH ×2 (09:00→20:30)
[2022-07-10] MEDS: FLUOXETINE HCL 20MG CAPSULE PO SCH (09:00)
[2022-07-10 16:00] VITALS: BP 125/71
[2022-07-10] MEDS: ENOXAPARIN 40MG/0.4ML SYR SUBCUT SCH (17:32)
[2022-07-10 20:00] VITALS: BP 131/86
[2022-07-11] VITALS: BP 128/82
[2022-07-11 08:00] VITALS: BP 128/90
[2022-07-11] MEDS: FLUOXETINE HCL 20MG CAPSULE PO SCH (09:56)
[2022-07-11] MEDS: RISPERIDONE 1MG TABLET PO SCH ×2 (09:57→21:30)
[2022-07-11 12:00] VITALS: BP 111/78
[2022-07-11 16:00] VITALS: BP 109/73
[2022-07-11] MEDS: ENOXAPARIN 40MG/0.4ML SYR SUBCUT SCH (18:15)
[2022-07-11 20:00] VITALS: BP 121/86
[2022-07-12] VITALS: BP 126/89
[2022-07-12 04:00] VITALS: BP 121/86
[2022-07-12 08:00] VITALS: BP 107/74
[2022-07-12] MEDS: RISPERIDONE 1MG TABLET PO SCH ×2 (08:59→21:20)
[2022-07-12 12:00] VITALS: BP 110/71
[2022-07-12] MEDS: FLUOXETINE HCL 20MG CAPSULE PO SCH (13:02)
[2022-07-12 16:00] VITALS: BP 113/79
[2022-07-12] MEDS: BUPROPION HCL 100MG SR TABLET PO SCH (17:39)
[2022-07-12] MEDS: ENOXAPARIN 40MG/0.4ML SYR SUBCUT SCH (17:39)
[2022-07-12 20:00] VITALS: BP 145/92
[2022-07-13] VITALS: BP 115/78
[2022-07-13 04:00] VITALS: BP 121/80
[2022-07-13 08:00] VITALS: BP 113/77
[2022-07-13] MEDS: BUPROPION HCL 100MG SR TABLET PO SCH (08:53)
[2022-07-13] MEDS: FLUOXETINE HCL 20MG CAPSULE PO SCH (08:53)
[2022-07-13] MEDS: RISPERIDONE 1MG TABLET PO SCH ×2 (08:53→21:36)
[2022-07-13 12:00] VITALS: BP 107/72
[2022-07-13 16:00] VITALS: BP 126/80
[2022-07-13] MEDS: ENOXAPARIN 40MG/0.4ML SYR SUBCUT SCH (17:22)
[2022-07-13 20:00] VITALS: BP 123/74
[2022-07-14] VITALS: BP 111/77
[2022-07-14 04:00] VITALS: BP 113/74
[2022-07-14 08:00] VITALS: BP 109/81
[2022-07-14] MEDS: BUPROPION HCL 100MG SR TABLET PO SCH (08:51)
[2022-07-14] MEDS: RISPERIDONE 1MG TABLET PO SCH ×2 (08:51→20:59)
[2022-07-14] MEDS: FLUOXETINE HCL 20MG CAPSULE PO SCH (08:51)
[2022-07-14 12:00] VITALS: BP 123/74
[2022-07-14 16:00] VITALS: BP 112/82
[2022-07-14] MEDS: ENOXAPARIN 40MG/0.4ML SYR SUBCUT SCH (17:39)
[2022-07-14 20:00] VITALS: BP 118/71
[2022-07-15] VITALS: BP 135/81
[2022-07-15 04:00] VITALS: BP 122/75
[2022-07-15 08:00] VITALS: BP 136/84
[2022-07-15] MEDS: BUPROPION HCL 100MG SR TABLET PO SCH (08:46)
[2022-07-15] MEDS: FLUOXETINE HCL 20MG CAPSULE PO SCH (08:46)
[2022-07-15] MEDS: RISPERIDONE 1MG TABLET PO SCH ×2 (08:46→21:01)
[2022-07-15 12:00] VITALS: BP 106/70
[2022-07-15 16:00] VITALS: BP 138/83
[2022-07-15] MEDS: ENOXAPARIN 40MG/0.4ML SYR SUBCUT SCH (17:18)
[2022-07-16 00:33] VITALS: BP 138/83
[2022-07-16 06:31] LABS: BASOPHILS % 0.6 % (0.0-2.0); EOSINOPHILS % 0.9 % (0.0-5.0); HEMATOCRIT. 24.9 % (42.0-52.0); HEMOGLOBIN. 8.3 g/dL (14.0-18.0); LYMPHOCYTES % 10.5 % (20.0-50.0); MEAN CORPUSCULAR VOLUME 86.8 fL (80.0-94.0); MEAN PLATELET VOLUME 8.7 fl (7.4-10.4); MONOCYTES % 7.2 % (2.0-8.0); NEUTROPHILS % 80.8 % (40.0-76.0); PLATELET 357 x1000/uL (130-400); RED BLOOD CELL COUNT 2.87 mill/uL (4.7-6.1); RED CELL DISTRIBUTION WIDTH 15.9 % (11.6-14.6)
[2022-07-16 07:32] LABS: CHLORIDE 108 mEq/L (98-107)
[2022-07-16 08:00] VITALS: BP 122/90
[2022-07-16] MEDS: FLUOXETINE HCL 20MG CAPSULE PO SCH (09:36)
[2022-07-16] MEDS: RISPERIDONE 1MG TABLET PO SCH ×2 (09:36→20:26)
[2022-07-16] MEDS: BUPROPION HCL 100MG SR TABLET PO SCH (09:36)
[2022-07-16 12:00] VITALS: BP 133/79
[2022-07-16 16:00] VITALS: BP 120/79
[2022-07-16] MEDS: ENOXAPARIN 40MG/0.4ML SYR SUBCUT SCH (19:18)
[2022-07-16 20:00] VITALS: BP 127/74
[2022-07-17] VITALS: BP 131/84
[2022-07-17 04:00] VITALS: BP 114/81
[2022-07-17 08:00] VITALS: BP 116/75
[2022-07-17] MEDS: BUPROPION HCL 100MG SR TABLET PO SCH (10:17)
[2022-07-17] MEDS: RISPERIDONE 1MG TABLET PO SCH ×2 (10:17→20:54)
[2022-07-17] MEDS: FLUOXETINE HCL 20MG CAPSULE PO SCH (10:17)
[2022-07-17 12:00] VITALS: BP 131/83
[2022-07-17 16:00] VITALS: BP 128/73
[2022-07-17] MEDS: ENOXAPARIN 40MG/0.4ML SYR SUBCUT SCH (17:49)
[2022-07-17 20:00] VITALS: BP 123/84
[2022-07-18] VITALS: BP 124/70
[2022-07-18 04:00] VITALS: BP 113/74
[2022-07-18 08:00] VITALS: BP 118/79
[2022-07-18] MEDS ORDERED: RISPERIDONE 1MG TABLET PO SCH (09:45)
[2022-07-18] MEDS: FLUOXETINE HCL 20MG CAPSULE PO SCH (10:06)
[2022-07-18] MEDS: BUPROPION HCL 100MG SR TABLET PO SCH (10:06)
[2022-07-18 12:00] VITALS: BP 132/81
[2022-07-18 16:00] VITALS: BP 130/93
[2022-07-18] MEDS: ENOXAPARIN 40MG/0.4ML SYR SUBCUT SCH (17:51)
[2022-07-18 20:00] VITALS: BP 115/75
[2022-07-18] MEDS: RISPERIDONE 1MG TABLET PO SCH (21:06)
[2022-07-19] VITALS: BP 115/85
[2022-07-19 04:00] VITALS: BP 127/90
[2022-07-19 08:00] VITALS: BP 129/76
[2022-07-19] MEDS: FLUOXETINE HCL 20MG CAPSULE PO SCH (10:16)
[2022-07-19] MEDS: BUPROPION HCL 100MG SR TABLET PO SCH (10:16)
[2022-07-19 12:00] VITALS: BP 116/73
[2022-07-19] MEDS: ENOXAPARIN 40MG/0.4ML SYR SUBCUT SCH (18:19)
[2022-07-19] MEDS: RISPERIDONE 1MG TABLET PO SCH (20:13)
[2022-07-19 22:35] VITALS: BP 113/75
[2022-07-20 05:49] VITALS: BP 136/70
[2022-07-20 08:00] VITALS: BP 118/82
[2022-07-20] MEDS: BUPROPION HCL 100MG SR TABLET PO SCH (09:14)
[2022-07-20] MEDS: FLUOXETINE HCL 20MG CAPSULE PO SCH (09:14)
[2022-07-20 12:00] VITALS: BP 129/91
[2022-07-20 16:00] VITALS: BP 151/61
[2022-07-20] MEDS ORDERED: SODIUM HYPOCHLORITE 0.125% 473ML SOLUTION TOP SCH (17:45)
[2022-07-20] MEDS: ENOXAPARIN 40MG/0.4ML SYR SUBCUT SCH (18:15)
[2022-07-20] MEDS: FINASTERIDE 5MG TABLET PO SCH (19:00)
[2022-07-20 20:00] VITALS: BP 123/81
[2022-07-20] MEDS ORDERED: LIDOCAINE HCL 2% JELLY 5ML MM NR (20:00)
[2022-07-20 20:50] LABS: CHLORIDE 107 mEq/L (98-107)
[2022-07-20] MEDS: RISPERIDONE 1MG TABLET PO SCH (22:09)
[2022-07-20] MEDS: ACETAMINOPHEN 325MG TABLET PO PRN (22:09)
[2022-07-21] VITALS: BP 130/93
[2022-07-21 04:18] VITALS: BP 126/78
[2022-07-21] MEDS: TAMSULOSIN HCL 0.4MG SR CAPSULE PO SCH ×2 (05:07→08:58)
[2022-07-21] MEDS: BUPROPION HCL 100MG SR TABLET PO SCH (08:58)
[2022-07-21] MEDS: FINASTERIDE 5MG TABLET PO SCH (08:58)
[2022-07-21] MEDS: FLUOXETINE HCL 20MG CAPSULE PO SCH (08:58)
[2022-07-21] MEDS: SODIUM HYPOCHLORITE 0.125% 473ML SOLUTION TOP SCH ×2 (09:20→09:21)
[2022-07-21] MEDS: ENOXAPARIN 40MG/0.4ML SYR SUBCUT SCH (17:14)
[2022-07-21 20:00] VITALS: BP 135/89
[2022-07-21] MEDS: RISPERIDONE 1MG TABLET PO SCH (21:00)
[2022-07-22] VITALS: BP 126/88
[2022-07-22 04:00] VITALS: BP 109/76
[2022-07-22 06:55] LABS: CHLORIDE 104 mEq/L (98-107)
[2022-07-22 08:00] VITALS: BP 124/82
[2022-07-22] MEDS: FINASTERIDE 5MG TABLET PO SCH (09:22)
[2022-07-22] MEDS: BUPROPION HCL 100MG SR TABLET PO SCH (09:23)
[2022-07-22] MEDS: TAMSULOSIN HCL 0.4MG SR CAPSULE PO SCH (09:23)
[2022-07-22] MEDS: FLUOXETINE HCL 20MG CAPSULE PO SCH (09:23)
[2022-07-22] MEDS: SODIUM HYPOCHLORITE 0.125% 473ML SOLUTION TOP SCH (09:24)
[2022-07-22] MEDS: ACETAMINOPHEN 325MG TABLET PO PRN (09:25)
[2022-07-22 12:00] VITALS: BP 94/65
[2022-07-22 16:00] VITALS: BP 116/71
[2022-07-22] MEDS: ENOXAPARIN 40MG/0.4ML SYR SUBCUT SCH (19:47)
[2022-07-22 20:00] VITALS: BP 111/72
[2022-07-22] MEDS: RISPERIDONE 1MG TABLET PO SCH (21:30)
[2022-07-23] VITALS: BP 122/89
[2022-07-23 04:00] VITALS: BP 113/79
[2022-07-23 08:00] VITALS: BP 123/87
[2022-07-23] MEDS: FLUOXETINE HCL 20MG CAPSULE PO SCH (09:30)
[2022-07-23] MEDS: TAMSULOSIN HCL 0.4MG SR CAPSULE PO SCH (09:30)
[2022-07-23] MEDS: FINASTERIDE 5MG TABLET PO SCH (09:30)
[2022-07-23] MEDS: BUPROPION HCL 100MG SR TABLET PO SCH (09:30)
[2022-07-23] MEDS: SODIUM HYPOCHLORITE 0.125% 473ML SOLUTION TOP SCH (09:32)
[2022-07-23 12:00] VITALS: BP 125/70
[2022-07-23 16:00] VITALS: BP 124/83
[2022-07-23 17:45] LABS: HEMATOCRIT. 29.5 % (42.0-52.0); HEMOGLOBIN. 9.4 g/dL (14.0-18.0); MEAN CORPUSCULAR HEMOGLOBIN 27.8 pg (28.0-32.0); MEAN PLATELET VOLUME 7.7 fl (7.4-10.4); PLATELET 428 x1000/uL (130-400); RED CELL DISTRIBUTION WIDTH 16.4 % (11.6-14.6)
[2022-07-23] MEDS: ENOXAPARIN 40MG/0.4ML SYR SUBCUT SCH (17:52)
[2022-07-23 17:58] LABS: CHLORIDE 102 mEq/L (98-107)
[2022-07-23 18:48] LABS: PLATELET ESTIMATE INCREASED
[2022-07-23] MEDS: RISPERIDONE 1MG TABLET PO SCH (20:13)
[2022-07-23] MEDS: ACETAMINOPHEN 325MG TABLET PO PRN (20:16)
[2022-07-24] VITALS: BP 88/58
[2022-07-24 08:00] VITALS: BP 81/53
[2022-07-24] MEDS: BUPROPION HCL 100MG SR TABLET PO SCH (09:45)
[2022-07-24] MEDS: SODIUM HYPOCHLORITE 0.125% 473ML SOLUTION TOP SCH (09:45)
[2022-07-24] MEDS: TAMSULOSIN HCL 0.4MG SR CAPSULE PO SCH (09:49)
[2022-07-24] MEDS: FLUOXETINE HCL 20MG CAPSULE PO SCH (09:49)
[2022-07-24] MEDS: FINASTERIDE 5MG TABLET PO SCH (09:49)
[2022-07-24 09:50] VITALS: BP 93/60
[2022-07-24 12:00] VITALS: BP 97/61
[2022-07-24 16:00] VITALS: BP 98/65
[2022-07-24] MEDS: ENOXAPARIN 40MG/0.4ML SYR SUBCUT SCH (18:25)
[2022-07-24 20:00] VITALS: BP 151/104
[2022-07-24] MEDS: RISPERIDONE 1MG TABLET PO SCH (21:31)
[2022-07-25] VITALS: BP 111/81
[2022-07-25 08:00] VITALS: BP 113/71
[2022-07-25] MEDS: FINASTERIDE 5MG TABLET PO SCH (09:54)
[2022-07-25] MEDS: FLUOXETINE HCL 20MG CAPSULE PO SCH (09:54)
[2022-07-25] MEDS: BUPROPION HCL 100MG SR TABLET PO SCH (09:54)
[2022-07-25] MEDS: TAMSULOSIN HCL 0.4MG SR CAPSULE PO SCH (09:54)
[2022-07-25] MEDS: SODIUM HYPOCHLORITE 0.125% 473ML SOLUTION TOP SCH (09:55)
[2022-07-25 12:00] VITALS: BP 111/78
[2022-07-25] MEDS: HALOPERIDOL LACTATE 5MG/ML VIAL IM PRN ×2 (15:32→23:49)
[2022-07-25 16:00] VITALS: BP 128/72
[2022-07-25] MEDS: ENOXAPARIN 40MG/0.4ML SYR SUBCUT SCH (18:58)
[2022-07-25 20:00] VITALS: BP 102/73
[2022-07-25] MEDS: RISPERIDONE 1MG TABLET PO SCH (22:20)
[2022-07-26] VITALS: BP 110/68
[2022-07-26 04:00] VITALS: BP 110/62
[2022-07-26 08:00] VITALS: BP 121/78
[2022-07-26] MEDS: FINASTERIDE 5MG TABLET PO SCH ×2 (09:00→09:16)
[2022-07-26] MEDS: TAMSULOSIN HCL 0.4MG SR CAPSULE PO SCH ×2 (09:00→09:15)
[2022-07-26] MEDS: SODIUM HYPOCHLORITE 0.125% 473ML SOLUTION TOP SCH (09:00)
[2022-07-26] MEDS: FLUOXETINE HCL 20MG CAPSULE PO SCH ×2 (09:00→09:16)
[2022-07-26] MEDS: BUPROPION HCL 100MG SR TABLET PO SCH ×2 (09:00→09:16)
[2022-07-26 12:00] VITALS: BP 120/83
[2022-07-26 16:00] VITALS: BP 103/65
[2022-07-26] MEDS: ENOXAPARIN 40MG/0.4ML SYR SUBCUT SCH (18:00)
[2022-07-26] MEDS: RISPERIDONE 1MG TABLET PO SCH (21:00)
[2022-07-27 04:20] VITALS: BP 110/76
[2022-07-27 08:00] VITALS: BP 110/77
[2022-07-27] MEDS: RISPERIDONE 1MG TABLET PO SCH ×2 (08:27→21:12)
[2022-07-27] MEDS: FLUOXETINE HCL 20MG CAPSULE PO SCH (08:28)
[2022-07-27] MEDS: FINASTERIDE 5MG TABLET PO SCH (08:28)
[2022-07-27] MEDS: TAMSULOSIN HCL 0.4MG SR CAPSULE PO SCH (08:28)
[2022-07-27] MEDS: BUPROPION HCL 100MG SR TABLET PO SCH (08:28)
[2022-07-27] MEDS: SODIUM HYPOCHLORITE 0.125% 473ML SOLUTION TOP SCH (09:00)
[2022-07-27 12:00] VITALS: BP 114/63
[2022-07-27 16:00] VITALS: BP 136/89
[2022-07-27] MEDS: ENOXAPARIN 40MG/0.4ML SYR SUBCUT SCH (17:51)
[2022-07-27] MEDS: ACETAMINOPHEN 325MG TABLET PO PRN (17:52)
[2022-07-27 20:00] VITALS: BP 125/87
[2022-07-28] VITALS: BP 131/87
[2022-07-28 04:00] VITALS: BP 141/88
[2022-07-28 08:00] VITALS: BP 142/83
[2022-07-28] MEDS: SODIUM HYPOCHLORITE 0.125% 473ML SOLUTION TOP SCH (09:00)
[2022-07-28] MEDS: TAMSULOSIN HCL 0.4MG SR CAPSULE PO SCH (10:40)
[2022-07-28] MEDS: RISPERIDONE 1MG TABLET PO SCH ×2 (10:41→20:25)
[2022-07-28] MEDS: FLUOXETINE HCL 20MG CAPSULE PO SCH (10:41)
[2022-07-28] MEDS: BUPROPION HCL 100MG SR TABLET PO SCH (10:41)
[2022-07-28] MEDS: FINASTERIDE 5MG TABLET PO SCH (10:41)
[2022-07-28 12:00] VITALS: BP 142/80
[2022-07-28 16:00] VITALS: BP 127/85
[2022-07-28] MEDS: ENOXAPARIN 40MG/0.4ML SYR SUBCUT SCH (17:53)
[2022-07-28 20:00] VITALS: BP 117/75
[2022-07-28] MEDS ORDERED: ACETAMINOPHEN 325MG TABLET PO PRN (23:00)
[2022-07-28] MEDS ORDERED: NALOXONE HCL 0.4MG/ML VIAL IV PRN (23:00)
[2022-07-28] MEDS ORDERED: HYDROCODONE/ACETAMINOPHEN 5/325MG TABLET PO PRN (23:00)
[2022-07-29] VITALS: BP_SYST 123; BP_DIAS 80; BP_DIAS 87
[2022-07-29 04:00] VITALS: BP 116/73
[2022-07-29 08:00] VITALS: BP 123/80
[2022-07-29] MEDS ORDERED: LIDOCAINE 2%/EPINEPHRINE 1:200,000 20 ML VIAL INJ NR (08:00)
[2022-07-29] MEDS ORDERED: LIDOCAINE 2% 6ML GLYDO MM NR (08:00)
[2022-07-29] MEDS: FLUOXETINE HCL 20MG CAPSULE PO SCH (08:50)
[2022-07-29] MEDS: TAMSULOSIN HCL 0.4MG SR CAPSULE PO SCH (08:50)
[2022-07-29] MEDS: BUPROPION HCL 100MG SR TABLET PO SCH (08:50)
[2022-07-29] MEDS: RISPERIDONE 1MG TABLET PO SCH ×2 (08:50→20:35)
[2022-07-29] MEDS: FINASTERIDE 5MG TABLET PO SCH (08:53)
[2022-07-29] MEDS: SODIUM HYPOCHLORITE 0.125% 473ML SOLUTION TOP SCH (08:56)
[2022-07-29 12:00] VITALS: BP 115/76
[2022-07-29 16:00] VITALS: BP 116/78
[2022-07-29] MEDS: ENOXAPARIN 40MG/0.4ML SYR SUBCUT SCH (17:08)
[2022-07-29 20:00] VITALS: BP 102/70
[2022-07-30] VITALS: BP 111/80
[2022-07-30 08:00] VITALS: BP 112/75
[2022-07-30] MEDS: FLUOXETINE HCL 20MG CAPSULE PO SCH (08:52)
[2022-07-30] MEDS: TAMSULOSIN HCL 0.4MG SR CAPSULE PO SCH (08:52)
[2022-07-30] MEDS: BUPROPION HCL 100MG SR TABLET PO SCH (08:52)
[2022-07-30] MEDS: FINASTERIDE 5MG TABLET PO SCH (08:52)
[2022-07-30] MEDS: RISPERIDONE 1MG TABLET PO SCH (08:52)
[2022-07-30] MEDS: SODIUM HYPOCHLORITE 0.125% 473ML SOLUTION TOP SCH (08:53)
[2022-07-30 12:29] VITALS: BP 115/76
[2022-07-30 14:17] VITALS: BP 115/76
[2022-07-30 16:00] VITALS: BP 114/73
== END 2022-07-30 17:20 | DRG 710 ==
LOC: ER 21:36 → 7WST 05-31 00:40 → EDBEDREQ 05-31 00:47 → ENRESERV 05-31 04:23 → 6EST 06-11 23:31 → 5WST 07-01 10:30
PROVIDERS: ADMIT Internal Medicine; ATTEND Internal Medicine
PROC: 0KBN0ZZ Excision of Right Hip Muscle, Open Approach (ICD-10-PCS; principal; 2022-06-04)
PROC: 0KBP0ZZ Excision of Left Hip Muscle, Open Approach (ICD-10-PCS; 2022-06-04)
PROC: 0KBN0ZZ Excision of Right Hip Muscle, Open Approach (ICD-10-PCS; 2022-06-11)
PROC: 0KBP0ZZ Excision of Left Hip Muscle, Open Approach (ICD-10-PCS; 2022-06-11)
PROC: 0KBN0ZZ Excision of Right Hip Muscle, Open Approach (ICD-10-PCS; 2022-06-17)
PROC: 0KBP0ZZ Excision of Left Hip Muscle, Open Approach (ICD-10-PCS; 2022-06-17)
PROC: 0QB10ZZ Excision of Sacrum, Open Approach (ICD-10-PCS; 2022-06-28)
PROC: 0KBN0ZZ Excision of Right Hip Muscle, Open Approach (ICD-10-PCS; 2022-06-28)
PROC: 0KBN0ZZ Excision of Right Hip Muscle, Open Approach (ICD-10-PCS; 2022-07-03)
PROC: 0KBP0ZZ Excision of Left Hip Muscle, Open Approach (ICD-10-PCS; 2022-07-03)
PROC: 0KBN0ZZ Excision of Right Hip Muscle, Open Approach (ICD-10-PCS; 2022-07-21)
PROC: 0KBP0ZZ Excision of Left Hip Muscle, Open Approach (ICD-10-PCS; 2022-07-21)
PROC: 0KBN0ZZ Excision of Right Hip Muscle, Open Approach (ICD-10-PCS; 2022-07-24)
PROC: 0KBP0ZZ Excision of Left Hip Muscle, Open Approach (ICD-10-PCS; 2022-07-24)
PROC: 0KBN0ZZ Excision of Right Hip Muscle, Open Approach (ICD-10-PCS; 2022-07-24)
DX: A41.9 Sepsis, unspecified organism (principal); L89.154 Pressure ulcer of sacral region, stage 4; E43 Unspecified severe protein-calorie malnutrition; I11.0 Hypertensive heart disease with heart failure; L89.314 Pressure ulcer of right buttock, stage 4; I50.32 Chronic diastolic (congestive) heart failure; M62.82 Rhabdomyolysis; L89.612 Pressure ulcer of right heel, stage 2; E11.9 Type 2 diabetes mellitus without complications; D64.9 Anemia, unspecified; R45.851 Suicidal ideations; F20.9 Schizophrenia, unspecified; K57.90 Diverticulosis of intestine, part unspecified, without perforation or abscess without bleeding; N39.0 Urinary tract infection, site not specified; S81.811A Laceration without foreign body, right lower leg, initial encounter; Z68.25 Body mass index [BMI] 25.0-25.9, adult; Z59.00 Homelessness unspecified; X58.XXXA Exposure to other specified factors, initial encounter; Y93.89 Activity, other specified; Y92.89 Other specified places as the place of occurrence of the external cause; Y99.8 Other external cause status
CPT/HCPCS: 36415; 71045; 74176; 80048; 80053; 80307; 80320; 80329; 81003; 82040; 82550; 82962; 83036; 83605; 83880; 84134; 84145; 84484; 85025; 85027; 86480; 87070; 87077; 87186; 87426; 93005; 93306; 93970; 97110; 97112; 97162; 97166; 97530; 97535; 99291; A6261; C1893; C9803; J0295; J0696; J1200; J1630; J1650; J1815; J2060; J2270; J2405; J3490; J7030; J7050; J7060; A4315; G0480

== ENCOUNTER 2022-08-10 09:33 | Inpatient (IN) | payer MEDICAID ==
[~2022-08-10] VITALS: Ht 172.7 cm; Wt 64.4 kg
[2022-08-10] MEDS ORDERED: SODIUM CHLORIDE 0.9% 1,000 ML IV ONE (10:00)
[2022-08-10 11:07] LABS: HEMATOCRIT. 28.7 % (42.0-52.0); HEMOGLOBIN. 9.1 g/dL (14.0-18.0); MEAN CORPUSCULAR HEMOGLOBIN 26.5 pg (28.0-32.0); MEAN CORPUSCULAR VOLUME 83.8 fL (80.0-94.0); MEAN PLATELET VOLUME 8.3 fl (7.4-10.4); PLATELET 336 x1000/uL (130-400); RED BLOOD CELL COUNT 3.43 mill/uL (4.7-6.1); RED CELL DISTRIBUTION WIDTH 17.6 % (11.6-14.6)
[2022-08-10 11:11] LABS: CHLORIDE 106 mEq/L (98-107)
[2022-08-10 11:12] LABS: INR 1.3; PROTHROMBIN TIME 13.3 sec (9.6-11.0)
[2022-08-10] MEDS ORDERED: VANCOMYCIN 1G PREMIX 200 ML IV ONE (11:45)
[2022-08-10] MEDS ORDERED: SODIUM CHLORIDE 0.9% 1000ML BAG (SEPSIS BOLUS) IV ONE (11:45)
[2022-08-10] MEDS ORDERED: PIPERACILLIN/TAZ 3.375G PREMIX 50 ML IV ONE (11:45)
[2022-08-10 11:47] LABS: PLATELET ESTIMATE NORMAL
[2022-08-10] MEDS ORDERED: PIPERACILLIN/TAZ 3.375G PREMIX 50 ML IV NR (13:00)
[2022-08-10] MEDS ORDERED: VANCOMYCIN 1G PREMIX 200 ML IV NR (13:15)
[2022-08-10 16:07] LABS: CLARITY URINE TURBID (CLEAR); COLOR URINE YELLOW (YELLOW); KETONES URINE NEGATIVE (NEGATIVE); LEUKOCYTE ESTERASE URINE 3+ (NEGATIVE); NITRITE URINE POSITIVE (NEGATIVE); OCCULT BLOOD URINE 1+ (NEGATIVE); PH URINE >=9.0 (4.5-8.0); PROTEIN URINE 2+ (NEGATIVE); SPECIFIC GRAVITY URINE 1.013 (1.005-1.030); UROBILINOGEN URINE 0.2 E.U./dL (0.2-1.0)
[2022-08-10] MEDS ORDERED: GUAIFENESIN 200MG/10ML SUGAR FREE UDC PO PRN (17:45)
[2022-08-10] MEDS ORDERED: ONDANSETRON HCL 4MG/2ML INJ IV PRN (17:45)
[2022-08-10] MEDS ORDERED: DOCUSATE SODIUM 100MG CAPSULE PO PRN (17:45)
[2022-08-10] MEDS ORDERED: ACETAMINOPHEN 325MG TABLET PO PRN ×2 (17:45)
[2022-08-10] MEDS ORDERED: IPRATROPIUM/ALBUTEROL 0.5-3(2.5)MG/3ML NEB HHN PRN (17:45)
[2022-08-10] MEDS ORDERED: CLONIDINE 0.1MG TABLET PO PRN (17:45)
[2022-08-10] MEDS ORDERED: ALBUTEROL (0.083%) 2.5MG/3ML NEB HHN PRN (18:00)
[2022-08-10] MEDS ORDERED: IPRATROPIUM BROMIDE (0.02%) 0.5MG/2.5ML NEB HHN PRN (18:00)
[2022-08-10] MEDS ORDERED: NALOXONE HCL 0.4MG/ML VIAL IV PRN (18:00)
[2022-08-10] MEDS: PIPERACILLIN/TAZOBACTAM 3.375 G in DEXTROSE 5% WATER 50 ML IV SCH (23:00)
[2022-08-11] VITALS (8 sets, daily range): BP systolic 83–172; BP diastolic 54–146
[2022-08-11] MEDS ORDERED: PIPERACILLIN/TAZOBACTAM 3.375 G in DEXTROSE 5% WATER 50 ML IV SCH ×2
[2022-08-11] MEDS: PIPERACILLIN/TAZOBACTAM 3.375 G in DEXTROSE 5% WATER 50 ML IV SCH ×2 (05:41→21:02)
[2022-08-11 05:52] LABS: HEMATOCRIT. 26.9 % (42.0-52.0); HEMOGLOBIN. 8.7 g/dL (14.0-18.0); MEAN CORPUSCULAR VOLUME 83.3 fL (80.0-94.0); PLATELET 266 x1000/uL (130-400); RED BLOOD CELL COUNT 3.23 mill/uL (4.7-6.1); RED CELL DISTRIBUTION WIDTH 16.9 % (11.6-14.6)
[2022-08-11 07:39] LABS: CHLORIDE 115 mEq/L (98-107)
[2022-08-11] MEDS ORDERED: HYDRALAZINE 20MG/ML VIAL IV PRN (08:45)
[2022-08-11 12:35] LABS: PLATELET ESTIMATE NORMAL
[2022-08-11] MEDS: DILTIAZEM HCL 5MG/ML 5ML VIAL IV SCH ×2 (16:00→20:00)
[2022-08-11] MEDS ORDERED: SODIUM CHLORIDE 0.9% 500 ML IV SCH ×2 (17:45→18:08)
[2022-08-11] MEDS: MIDODRINE HCL 5MG TABLET PO SCH (21:17)
[2022-08-12 04:00] VITALS: BP 104/69
[2022-08-12] MEDS: DILTIAZEM HCL 5MG/ML 5ML VIAL IV SCH ×6 (04:00→20:00)
[2022-08-12] MEDS: PIPERACILLIN/TAZOBACTAM 3.375 G in DEXTROSE 5% WATER 50 ML IV SCH ×2 (05:29→14:00)
[2022-08-12 08:00] VITALS: BP 111/79
[2022-08-12] MEDS: MIDODRINE HCL 5MG TABLET PO SCH (09:28)
[2022-08-12] MEDS: HYDROCODONE/ACETAMINOPHEN 5/325MG TABLET PO PRN ×2 (11:12→20:49)
[2022-08-12 12:00] VITALS: BP 136/64
[2022-08-12 16:00] VITALS: BP 122/77
[2022-08-12 16:57] LABS: BASOPHILS % 0.3 % (0.0-2.0); EOSINOPHILS % 0.1 % (0.0-5.0); HEMOGLOBIN. 8.4 g/dL (14.0-18.0); LYMPHOCYTES % 7.2 % (20.0-50.0); MEAN CORPUSCULAR HEMOGLOBIN 26.5 pg (28.0-32.0); MEAN CORPUSCULAR VOLUME 84.9 fL (80.0-94.0); MEAN PLATELET VOLUME 9.2 fl (7.4-10.4); NEUTROPHILS % 87.4 % (40.0-76.0); PLATELET 217 x1000/uL (130-400); RED BLOOD CELL COUNT 3.18 mill/uL (4.7-6.1); RED CELL DISTRIBUTION WIDTH 17.5 % (11.6-14.6)
[2022-08-12 17:06] LABS: INR 1.2; PROTHROMBIN TIME 12.4 sec (9.6-11.0)
[2022-08-12 17:08] LABS: CHLORIDE 118 mEq/L (98-107)
[2022-08-12] MEDS: MIDODRINE HCL 5MG TABLET NG SCH (18:10)
[2022-08-12] MEDS: MEROPENEM 1,000 MG in SODIUM CHLORIDE 0.9% 100 ML IV SCH (19:00)
[2022-08-12 20:00] VITALS: BP 120/85
[2022-08-12] MEDS ORDERED: POTASSIUM CHLORIDE INJ 40 MEQ in DEXT 5% WATER 500 ML IV NR (20:30)
[2022-08-13] VITALS: BP 139/80
[2022-08-13] MEDS: DILTIAZEM HCL 5MG/ML 5ML VIAL IV SCH ×7 (00:30→23:02)
[2022-08-13] MEDS: MIDODRINE HCL 5MG TABLET NG SCH ×3 (01:58→17:11)
[2022-08-13] MEDS: MEROPENEM 1,000 MG in SODIUM CHLORIDE 0.9% 100 ML IV SCH ×3 (02:06→19:57)
[2022-08-13 04:00] VITALS: BP 130/78
[2022-08-13] MEDS: HYDROCODONE/ACETAMINOPHEN 5/325MG TABLET PO PRN ×3 (04:50→20:53)
[2022-08-13 06:14] LABS: BASOPHILS % 0.2 % (0.0-2.0); EOSINOPHILS % 0.3 % (0.0-5.0); HEMATOCRIT. 25.1 % (42.0-52.0); HEMOGLOBIN. 8.3 g/dL (14.0-18.0); LYMPHOCYTES % 7.4 % (20.0-50.0); MEAN CORPUSCULAR HEMOGLOBIN 27.2 pg (28.0-32.0); MEAN CORPUSCULAR VOLUME 82.3 fL (80.0-94.0); MEAN PLATELET VOLUME 9.3 fl (7.4-10.4); MONOCYTES % 4.5 % (2.0-8.0); NEUTROPHILS % 87.6 % (40.0-76.0); PLATELET 239 x1000/uL (130-400); RED BLOOD CELL COUNT 3.04 mill/uL (4.7-6.1); RED CELL DISTRIBUTION WIDTH 17.7 % (11.6-14.6)
[2022-08-13 06:25] LABS: CHLORIDE 115 mEq/L (98-107)
[2022-08-13 06:42] LABS: INR 1.2; PROTHROMBIN TIME 12.3 sec (9.6-11.0)
[2022-08-13 08:25] VITALS: BP 141/66
[2022-08-13] MEDS: LORAZEPAM 0.5MG TABLET PO PRN ×2 (08:53→23:02)
[2022-08-13 12:21] VITALS: BP 132/68
[2022-08-13] MEDS ORDERED: KCL 20MEQ/100ML PREMIX 100 ML IV NR (15:00)
[2022-08-13 16:00] VITALS: BP 100/53
[2022-08-13] MEDS: PANTOPRAZOLE SODIUM 40 MG/VIAL IV SCH (17:11)
[2022-08-13 20:52] VITALS: BP 139/86
[2022-08-14] VITALS: BP 142/78
[2022-08-14] MEDS: MIDODRINE HCL 5MG TABLET NG SCH ×3 (01:00→17:24)
[2022-08-14] MEDS: MEROPENEM 1,000 MG in SODIUM CHLORIDE 0.9% 100 ML IV SCH ×3 (03:19→17:22)
[2022-08-14 03:25] LABS: CHLORIDE 120 mEq/L (98-107)
[2022-08-14 03:29] LABS: BASOPHILS % 0.3 % (0.0-2.0); EOSINOPHILS % 0.2 % (0.0-5.0); HEMATOCRIT. 26.3 % (42.0-52.0); HEMOGLOBIN. 8.2 g/dL (14.0-18.0); LYMPHOCYTES % 7.7 % (20.0-50.0); MEAN CORPUSCULAR HEMOGLOBIN 26.4 pg (28.0-32.0); MEAN CORPUSCULAR VOLUME 84.2 fL (80.0-94.0); MEAN PLATELET VOLUME 9.1 fl (7.4-10.4); MONOCYTES % 4.3 % (2.0-8.0); NEUTROPHILS % 87.5 % (40.0-76.0); PLATELET 244 x1000/uL (130-400); RED BLOOD CELL COUNT 3.12 mill/uL (4.7-6.1); RED CELL DISTRIBUTION WIDTH 17.1 % (11.6-14.6)
[2022-08-14 03:34] LABS: INR 1.1; PROTHROMBIN TIME 11.6 sec (9.6-11.0)
[2022-08-14 04:00] VITALS: BP 119/75
[2022-08-14] MEDS: DILTIAZEM HCL 5MG/ML 5ML VIAL IV SCH ×5 (04:00→20:25)
[2022-08-14 08:02] VITALS: BP 131/64
[2022-08-14] MEDS: PANTOPRAZOLE SODIUM 40 MG/VIAL IV SCH (08:31)
[2022-08-14] MEDS ORDERED: SODIUM CHLORIDE 0.9% 250 ML IV ONE (09:00)
[2022-08-14] MEDS ORDERED: DEXAMETHASONE 4MG/ML 1ML VIAL ONE (11:22)
[2022-08-14] MEDS ORDERED: ONDANSETRON HCL 4MG/2ML INJ ONE (11:22)
[2022-08-14] MEDS ORDERED: PROPOFOL 200MG/20ML VIAL IV ONE (11:23)
[2022-08-14] MEDS ORDERED: LIDOCAINE HCL 1% 10 MG/ML 10ML VIAL ONE (11:24)
[2022-08-14] MEDS ORDERED: DEXT 5%/0.45% NACL 500ML 500 ML IV ONE (13:00)
[2022-08-14] MEDS: HYDROCODONE/ACETAMINOPHEN 5/325MG TABLET PO PRN (17:23)
[2022-08-14] MEDS: SUCRALFATE 1 G/10 ML UDC GT SCH (17:23)
[2022-08-14 20:00] VITALS: BP 146/90
[2022-08-14] MEDS: LORAZEPAM 0.5MG TABLET PO PRN (20:24)
[2022-08-15] VITALS: BP 130/92
[2022-08-15] MEDS: MIDODRINE HCL 5MG TABLET NG SCH ×3 (00:32→16:59)
[2022-08-15] MEDS: DILTIAZEM HCL 5MG/ML 5ML VIAL IV SCH ×6 (00:36→20:38)
[2022-08-15] MEDS: SUCRALFATE 1 G/10 ML UDC GT SCH ×4 (00:36→16:59)
[2022-08-15] MEDS ORDERED: OMEPRAZOLE 20MG CAPSULE EXTENDED RELEASE PO SCH (01:00)
[2022-08-15] MEDS: LORAZEPAM 0.5MG TABLET PO PRN ×4 (01:17→23:02)
[2022-08-15] MEDS: MEROPENEM 1,000 MG in SODIUM CHLORIDE 0.9% 100 ML IV SCH ×3 (02:24→17:53)
[2022-08-15] MEDS: HYDROCODONE/ACETAMINOPHEN 5/325MG TABLET PO PRN (02:25)
[2022-08-15 04:00] VITALS: BP 134/93
[2022-08-15] MEDS: METOCLOPRAMIDE HCL 10MG/2ML VIAL IV SCH ×3 (05:12→17:00)
[2022-08-15] MEDS: LANSOPRAZOLE 30MG DR CAPSULE GT SCH (07:40)
[2022-08-15 09:02] LABS: CHLORIDE 122 mEq/L (98-107)
[2022-08-15 12:21] LABS: BASOPHILS % 0.2 % (0.0-2.0); HEMATOCRIT. 26.2 % (42.0-52.0); HEMOGLOBIN. 8.3 g/dL (14.0-18.0); LYMPHOCYTES % 12.4 % (20.0-50.0); MEAN CORPUSCULAR HEMOGLOBIN 26.8 pg (28.0-32.0); MEAN CORPUSCULAR VOLUME 84.6 fL (80.0-94.0); MEAN PLATELET VOLUME 8.8 fl (7.4-10.4); MONOCYTES % 4.9 % (2.0-8.0); NEUTROPHILS % 82.5 % (40.0-76.0); PLATELET 267 x1000/uL (130-400); RED CELL DISTRIBUTION WIDTH 17.5 % (11.6-14.6)
[2022-08-15] MEDS: THIAMINE HCL 100MG TABLET PEG SCH (17:01)
[2022-08-15 20:00] VITALS: BP 139/92
[2022-08-16] VITALS: BP 137/87
[2022-08-16] MEDS: MIDODRINE HCL 5MG TABLET NG SCH ×3 (00:21→17:00)
[2022-08-16] MEDS: DILTIAZEM HCL 5MG/ML 5ML VIAL IV SCH ×6 (00:28→21:08)
[2022-08-16] MEDS: SUCRALFATE 1 G/10 ML UDC GT SCH ×4 (00:28→18:28)
[2022-08-16] MEDS: METOCLOPRAMIDE HCL 10MG/2ML VIAL IV SCH ×4 (00:29→18:28)
[2022-08-16] MEDS ORDERED: HYDROCODONE/ACETAMINOPHEN 5/325MG TABLET PO PRN (00:30)
[2022-08-16] MEDS: MEROPENEM 1,000 MG in SODIUM CHLORIDE 0.9% 100 ML IV SCH ×2 (02:10→14:05)
[2022-08-16 04:00] VITALS: BP 124/80
[2022-08-16] MEDS: LANSOPRAZOLE 30MG DR CAPSULE GT SCH (06:46)
[2022-08-16] MEDS ORDERED: LIDOCAINE HCL 1% 30ML VIAL (10MG/ML) ONE (07:29)
[2022-08-16 08:01] LABS: BASOPHILS % 0.2 % (0.0-2.0); EOSINOPHILS % 0.4 % (0.0-5.0); HEMATOCRIT. 24.1 % (42.0-52.0); HEMOGLOBIN. 7.8 g/dL (14.0-18.0); LYMPHOCYTES % 11.4 % (20.0-50.0); MEAN CORPUSCULAR HEMOGLOBIN 26.8 pg (28.0-32.0); MEAN CORPUSCULAR VOLUME 83.1 fL (80.0-94.0); MEAN PLATELET VOLUME 8.9 fl (7.4-10.4); MONOCYTES % 5.1 % (2.0-8.0); NEUTROPHILS % 82.9 % (40.0-76.0); PLATELET 284 x1000/uL (130-400); RED CELL DISTRIBUTION WIDTH 17.4 % (11.6-14.6)
[2022-08-16 08:42] LABS: CHLORIDE 119 mEq/L (98-107)
[2022-08-16] MEDS: LORAZEPAM 0.5MG TABLET PO PRN ×2 (08:55→15:57)
[2022-08-16] MEDS: THIAMINE HCL 100MG TABLET PEG SCH (08:55)
[2022-08-16 12:00] VITALS: BP 115/70
[2022-08-16 16:00] VITALS: BP 116/75
[2022-08-16 20:00] VITALS: BP 137/90
[2022-08-17] VITALS: BP 130/80
[2022-08-17] MEDS: DILTIAZEM HCL 5MG/ML 5ML VIAL IV SCH ×6 (00:47→19:36)
[2022-08-17] MEDS: SUCRALFATE 1 G/10 ML UDC GT SCH ×4 (00:47→18:48)
[2022-08-17] MEDS: METOCLOPRAMIDE HCL 10MG/2ML VIAL IV SCH (00:48)
[2022-08-17] MEDS: MIDODRINE HCL 5MG TABLET NG SCH ×3 (00:48→17:00)
[2022-08-17] MEDS: MEROPENEM 1,000 MG in SODIUM CHLORIDE 0.9% 100 ML IV SCH ×4 (03:00→19:30)
[2022-08-17 04:00] VITALS: BP 128/90
[2022-08-17 06:12] LABS: BASOPHILS % 0.1 % (0.0-2.0); EOSINOPHILS % 0.5 % (0.0-5.0); HEMATOCRIT. 25.5 % (42.0-52.0); LYMPHOCYTES % 10.1 % (20.0-50.0); MEAN CORPUSCULAR HEMOGLOBIN 26.3 pg (28.0-32.0); MEAN CORPUSCULAR VOLUME 83.5 fL (80.0-94.0); MEAN PLATELET VOLUME 9.1 fl (7.4-10.4); MONOCYTES % 4.1 % (2.0-8.0); NEUTROPHILS % 85.2 % (40.0-76.0); PLATELET 275 x1000/uL (130-400); RED BLOOD CELL COUNT 3.05 mill/uL (4.7-6.1); RED CELL DISTRIBUTION WIDTH 17.3 % (11.6-14.6)
[2022-08-17] MEDS: LANSOPRAZOLE 30MG DR CAPSULE GT SCH (06:41)
[2022-08-17 08:50] LABS: CHLORIDE 118 mEq/L (98-107)
[2022-08-17] MEDS: THIAMINE HCL 100MG TABLET PEG SCH (09:12)
[2022-08-17] MEDS: LORAZEPAM 0.5MG TABLET PO PRN (09:12)
[2022-08-17 12:00] VITALS: BP 127/79
[2022-08-17 16:00] VITALS: BP 137/102
[2022-08-17 20:00] VITALS: BP 111/80
[2022-08-18] VITALS: BP 108/40
[2022-08-18] MEDS: DILTIAZEM HCL 5MG/ML 5ML VIAL IV SCH ×2 (01:37→04:00)
[2022-08-18] MEDS: MIDODRINE HCL 5MG TABLET NG SCH ×2 (01:38→10:09)
[2022-08-18] MEDS: SUCRALFATE 1 G/10 ML UDC GT SCH ×4 (01:38→18:07)
[2022-08-18] MEDS: MEROPENEM 1,000 MG in SODIUM CHLORIDE 0.9% 100 ML IV SCH ×2 (03:13→10:48)
[2022-08-18 04:00] VITALS: BP 101/65
[2022-08-18 07:26] LABS: HEMOGLOBIN. 7.7 g/dL (14.0-18.0); MEAN CORPUSCULAR HEMOGLOBIN 26.1 pg (28.0-32.0); MEAN CORPUSCULAR VOLUME 84.4 fL (80.0-94.0); MEAN PLATELET VOLUME 8.9 fl (7.4-10.4); PLATELET 278 x1000/uL (130-400); RED BLOOD CELL COUNT 2.97 mill/uL (4.7-6.1); RED CELL DISTRIBUTION WIDTH 17.7 % (11.6-14.6)
[2022-08-18 07:51] LABS: CHLORIDE 114 mEq/L (98-107)
[2022-08-18 08:00] VITALS: BP 92/64
[2022-08-18] MEDS: THIAMINE HCL 100MG TABLET PEG SCH (10:09)
[2022-08-18] MEDS: LANSOPRAZOLE 30MG DR CAPSULE GT SCH (10:27)
[2022-08-18] MEDS ORDERED: THIA100T72 PEG (11:42)
[2022-08-18] MEDS ORDERED: LANS30CA55 GT (11:42)
[2022-08-18] MEDS ORDERED: SUCR1ORA15 GT (11:42)
[2022-08-18] MEDS ORDERED: MIDO5TAB4 GT (11:42)
[2022-08-18 12:00] VITALS: BP 112/82
[2022-08-18 14:37] VITALS: BP 112/82
[2022-08-18 16:00] VITALS: BP 108/77
[2022-08-18] MEDS ORDERED: MIDODRINE HCL 5MG TABLET GT SCH (17:00)
[2022-08-18] MEDS ORDERED: NALOXONE HCL 0.4MG/ML VIAL IV PRN (17:30)
[2022-08-18] MEDS ORDERED: MEROPENEM 1,000 MG in SODIUM CHLORIDE 0.9% 100 ML IV SCH (18:00)
[2022-08-18 22:34] LABS: PLATELET ESTIMATE NORMAL
== END 2022-08-18 19:15 | DRG 710 ==
LOC: ER 09:33 → EDBEDREQTM 10:00 → EDBEDREQSVC 10:00 → EDBEDREQ 10:00 → MICUSO 11:41 → EDBEDREQ 11:43 → EDBEDREQTM 11:43 → 7WST 21:48 → 6EST 08-18 02:10
PROVIDERS: ADMIT Internal Medicine; ATTEND Internal Medicine
PROC: 0KBN0ZZ Excision of Right Hip Muscle, Open Approach (ICD-10-PCS; principal; 2022-08-13)
PROC: 0KBP0ZZ Excision of Left Hip Muscle, Open Approach (ICD-10-PCS; 2022-08-13)
PROC: 0DB58ZX Excision of Esophagus, Via Natural or Artificial Opening Endoscopic, Diagnostic (ICD-10-PCS; 2022-08-14)
PROC: 0DB78ZX Excision of Stomach, Pylorus, Via Natural or Artificial Opening Endoscopic, Diagnostic (ICD-10-PCS; 2022-08-14)
PROC: 0DH63UZ Insertion of Feeding Device into Stomach, Percutaneous Approach (ICD-10-PCS; 2022-08-14)
PROC: 02HV33Z Insertion of Infusion Device into Superior Vena Cava, Percutaneous Approach (ICD-10-PCS; 2022-08-16)
PROC: B548ZZA Ultrasonography of Superior Vena Cava, Guidance (ICD-10-PCS; 2022-08-16)
DX: A41.50 Gram-negative sepsis, unspecified (principal); E87.20 Acidosis, unspecified; E43 Unspecified severe protein-calorie malnutrition; L89.154 Pressure ulcer of sacral region, stage 4; L89.314 Pressure ulcer of right buttock, stage 4; E88.09 Other disorders of plasma-protein metabolism, not elsewhere classified; E11.9 Type 2 diabetes mellitus without complications; D64.9 Anemia, unspecified; I48.0 Paroxysmal atrial fibrillation; R62.7 Adult failure to thrive; K29.70 Gastritis, unspecified, without bleeding; Z20.822 Contact with and (suspected) exposure to COVID-19; K25.9 Gastric ulcer, unspecified as acute or chronic, without hemorrhage or perforation; E87.6 Hypokalemia; R13.12 Dysphagia, oropharyngeal phase; E78.5 Hyperlipidemia, unspecified; I10 Essential (primary) hypertension; B96.4 Proteus (mirabilis) (morganii) as the cause of diseases classified elsewhere; N39.0 Urinary tract infection, site not specified; F03.90 Unspecified dementia, unspecified severity, without behavioral disturbance, psychotic disturbance, mood disturbance, and anxiety; F20.9 Schizophrenia, unspecified; Z68.1 Body mass index [BMI] 19.9 or less, adult; Z79.84 Long term (current) use of oral hypoglycemic drugs; Z93.1 Gastrostomy status; Z68.21 Body mass index [BMI] 21.0-21.9, adult; L89.890 Pressure ulcer of other site, unstageable
CPT/HCPCS: 36415; 36573; 71045; 76705; 80048; 80053; 81003; 82040; 83605; 84134; 84145; 85025; 87077; 87186; 87426; 88305; 92610; 93005; 99291; A6261; C1725; C1893; C9113; J0360; J1100; J2185; J2405; J2543; J2704; J2765; J3370; J3480; J3490; J7030; J7050; J7060